=== PATIENT | female | born 1960 | race American Indian/Alaskan Native ===

== ENCOUNTER 2017-04-17 11:27 | Inpatient (IN) | payer MEDICARE ==
--- NOTE | 2017-04-17 13:05 | XRay Report ---
AP CHEST: HISTORY: Shortness of breath No comparison. Heart size and pulmonary venous structures are borderline. A small left pleural effusion is identified. No evidence for pneumonia or pneumothorax. IMPRESSION: Mild CHF.
[2017-04-17 13:12] LABS: Basophils % (Auto) 0.6 % (0.0-1.8); Eosinophils % (Auto) 1.6 % (0.0-4.3); Hematocrit 37.1 % (30.3-42.9); Hemoglobin 12.1 gm/dl (10.1-14.3); Mean Corpuscular HGB Conc 33 % (30-34); Mean Corpuscular Hemoglobin 27 pg (28-32); Mean Corpuscular Volume 82 fl (79-97); Platelet Count 266 K/mm3 (140-440); Red Blood Count 4.54 M/mm3 (3.65-5.03); Red Cell Distribution Width 15.7 % (13.2-15.2); White Blood Count 9.9 K/mm3 (4.5-11.0)
[2017-04-17 13:18] LABS: Anion Gap 18 mmol/L; BUN/Creatinine Ratio 29; Blood Urea Nitrogen 23 mg/dL (7-17); Calcium 8.7 mg/dL (8.4-10.2); Carbon Dioxide 24 mmol/L (22-30); Chloride 100.9 mmol/L (98-107); Glucose 84 mg/dL (65-100); Potassium 4.6 mmol/L (3.6-5.0); Sodium 138 mmol/L (137-145)
[2017-04-17 13:21] LABS: INR 1.11 (0.87-1.13); Partial Thromboplastin Time 27.5 Sec. (24.2-36.6)
[2017-04-17 13:39] LABS: Cholesterol 175 mg/dL (50-199); HDL Cholesterol 33 mg/dL (40-59); LDL Cholesterol,Direct 113 mg/dL (50-130); Triglycerides 148 mg/dL (2-149)
[2017-04-17] MEDS ORDERED: LASIX IV ONE (13:53)
--- NOTE | 2017-04-17 14:07 | Emergency Department Report ---
ED Shortness of Breath HPI - General Chief Complaint: Dyspnea/Respdistress Stated Complaint: KELVIN Time Seen by Provider: 04/17/17 13:39 Source: patient, EMS Mode of arrival: Stretcher Limitations: Physical Limitation - History of Present Illness Initial Comments: 56-year-old female here with complaint of shortness of breath. Patient states her last 3 days she's had worsening shortness of breath however yesterday the ear was out in her apartment she felt worse. She denies fevers or chills. No cough. She has a known history of CHF MD Complaint: shortness of breath -: days(s) (3) Consistency: constant Improves With: oxygen Worsens With: lying flat Known History Of: congestive heart failure Treatments Prior to Arrival: oxygen - Related Data Allergies Allergy/AdvReac Type Severity Reaction Status Date / Time No Known Allergies Allergy Unverified 04/17/17 11:46 ED Review of Systems ROS: Stated complaint: KELVIN Other details as noted in HPI Comment: All other systems reviewed and negative ENT: epistaxis Respiratory: orthopnea, SOB with exertion, SOB at rest. denies: cough, shortness of breath, wheezing Cardiovascular: denies: chest pain, palpitations Endocrine: no symptoms reported Gastrointestinal: denies: abdominal pain, nausea, diarrhea Genitourinary: denies: urgency, dysuria, discharge Musculoskeletal: denies: back pain, joint swelling, arthralgia Skin: denies: rash, lesions Neurological: denies: headache, weakness, paresthesias Psychiatric: denies: anxiety, depression Hematological/Lymphatic: denies: easy bleeding, easy bruising ED Past Medical Hx - Past Medical History Previous Medical History?: Yes Hx Hypertension: Yes Hx CVA: Yes (2008) Additional medical history: 2008 - Surgical History Past Surgical History?: Yes Additional Surgical History: 2012 dislocation of left ankle but was never repair ; October 2016 left hip replacement - Social History Smoking Status: Former Smoker Substance Use Type: Alcohol ED Physical Exam - General Limitations: Physical Limitation General appearance: alert, in no apparent distress - Head Head exam: Present: atraumatic, normocephalic - Eye Eye exam: Present: normal appearance. Absent: scleral icterus, conjunctival injection - ENT ENT exam: Present: mucous membranes moist - Neck Neck exam: Present: normal inspection - Respiratory Respiratory exam: Present: rales, decreased breath sounds (decreased at left base). Absent: respiratory distress - Cardiovascular Cardiovascular Exam: Present: regular rate, normal rhythm, normal heart sounds. Absent: systolic murmur, diastolic murmur, rubs, gallop - GI/Abdominal GI/Abdominal exam: Present: soft, normal bowel sounds. Absent: distended, tenderness - Extremities Exam Extremities exam: Present: normal inspection - Back Exam Back exam: Present: normal inspection - Neurological Exam Neurological exam: Present: alert, oriented X3 - Psychiatric Psychiatric exam: Present: normal affect, normal mood - Skin Skin exam: Present: warm, dry, intact, normal color. Absent: rash ED Course Vital Signs 04/17/17 04/17/17 11:46 13:00 Temperature 98.4 F Pulse Rate 96 H 103 H Respiratory 25 H Rate Blood Pressure 104/74 O2 Sat by Pulse 100 Oximetry ED Medical Decision Making - Lab Data Result diagrams: 04/17/17 12:40 04/17/17 12:40 Laboratory Results - last 24 hr 04/17/17 04/17/17 04/17/17 12:40 12:40 12:40 WBC 9.9 RBC 4.54 Hgb 12.1 Hct 37.1 MCV 82 MCH 27 L MCHC 33 RDW 15.7 H Plt Count 266 Lymph % (Auto) 12.7 L [place] % (Auto) 1.8 Eos % (Auto) 1.6 Baso % (Auto) 0.6 Lymph # 1.3 [place] # 0.2 Eos # 0.2 Baso # 0.1 Seg Neutrophils % 83.3 H Seg Neutrophils # 8.2 H PT 14.9 INR 1.11 Sodium 138 Potassium 4.6 Chloride 100.9 Carbon Dioxide 24 Anion Gap 18 BUN 23 H Creatinine 0.8 Estimated GFR > 60 BUN/Creatinine Ratio 29 Glucose 84 Calcium 8.7 Troponin T 0.174 H* Triglycerides 148 Cholesterol 175 LDL Cholesterol Direct 113 HDL Cholesterol 33 L Cholesterol/HDL Ratio 5.30 - Medical Decision Making 56-year-old female here with complaint of shortness of breath. Patient with mild CHF. Crackles on clinical exam. She has a chest x-ray that shows left pleural effusion with bilateral pulmonary edema. Denies fevers chills nausea vomiting. Plan admit the patient to the hospitalist for diuresis. Ordered doses of Lasix and will admit. Portions of this chart were dictated with dictation software. There may be dictation errors contained within this note. Critical care attestation.: If time is entered above; I have spent that time in minutes in the direct care of this critically ill patient, excluding procedure time. ED Disposition Clinical Impression: Acute exacerbation of CHF (congestive heart failure) Disposition: OP ADMIT IP TO THIS HOSP Is pt being admited?: Yes Condition: Serious Referrals: PRIMARY CARE, [Primary Care Provider] - 3-5 Days
--- NOTE | 2017-04-17 14:12 | History and Physical Report ---
History of Present Illness Chief complaint: I cant breathe History of present illness: 56 YO Female with HTN, CVA, Systolic CHF, Obesity presents to ED for evaluation. Pt states that she has experienced shortness of breath for the past 3 days with worsening symptoms over the past 12 hours. Pt acknowledges leg swelling, Orthopnea, PND, dietary noncompliance, feeling bloated. Pt denies fever, chills, CP, Palpitations, NVD, syncope, productive cough, calf pain, prolonged travel/immobility, individual/family history of DVT/PE, skin rash, vertigo, trauma, hemopysis, or recent ill contacts. Past History Past Medical History: heart failure, hypertension, stroke Past Surgical History: total hip replacement Social history: single. denies: smoking, alcohol abuse, prescription drug abuse Family history: hypertension Medications and Allergies Allergies Allergy/AdvReac Type Severity Reaction Status Date / Time No Known Allergies Allergy Unverified 04/17/17 11:46 Home Medications Medication Instructions Recorded Confirmed Last Taken Type Carvedilol [Coreg] 12.5 mg PO BIDWM 04/17/17 04/17/17 Unknown History Cyclobenzaprine [Flexeril 10 MG 10 mg PO DAILY 04/17/17 04/17/17 Unknown History TAB] Gabapentin [Neurontin] 300 mg PO TID 04/17/17 04/17/17 Unknown History Ibuprofen [Motrin 800 MG tab] 800 mg PO DAILY 04/17/17 04/17/17 Unknown History amLODIPine [Norvasc] 10 mg PO DAILY 04/17/17 04/17/17 Unknown History prednisoLONE [Millipred] 5 mg PO DAILY 04/17/17 04/17/17 Unknown History Review of Systems Constitutional: no weight loss, no weight gain, no fever, no chills, no sweats Ears, nose, mouth and throat: no ear pain, no ear discharge, no tinnitis, no decreased hearing, no nose pain, no nasal congestion Cardiovascular: orthopnea, edema, shortness of breath, paroxysmal nocturnal dyspnea, no chest pain, no palpitations, no rapid/irregular heart beat Respiratory: no cough, no cough with sputum, no excessive sputum, no hemoptysis Gastrointestinal: no abdominal pain, no nausea, no vomiting, no diarrhea, no constipation Genitourinary Female: no pelvic pain, no flank pain, no menorrhagia, no dysuria Rectal: no pain, no incontinence, no bleeding Musculoskeletal: no neck stiffness, no neck pain, no shooting arm pain, no arm numbness/tingling, no low back pain Integumentary: no rash, no pruritis, no redness, no sores Neurological: no transient paralysis, no paralysis, no weakness, no parathesias , no numbness, no tingling Psychiatric: no memory loss, no change in sleep habits, no sleep disturbances, no insomnia, no hypersomnia Endocrine: no cold intolerance, no heat intolerance, no polyphagia, no excessive thirst, no polydipsia, no polyuria, no nocturia, no excessive sweating Hematologic/Lymphatic: no easy bruising, no easy bleeding Allergic/Immunologic: no urticaria, no allergic rhinitis, no wheezing Exam - Constitutional Vitals: Temp Pulse Resp BP Pulse Ox 98.4 F 103 H 25 H 104/74 100 04/17/17 11:46 04/17/17 13:00 04/17/17 11:46 04/17/17 11:46 04/17/17 11:46 General appearance: Present: mild distress, obese, disheveled - EENT Eyes: Present: PERRL ENT: hearing intact, clear oral mucosa - Neck Neck: Present: supple, normal ROM - Respiratory Respiratory effort: labored Respiratory: bilateral: diminished, rhonchi - Cardiovascular Heart Sounds: Present: S1 & S2. Absent: rub, click - Extremities Extremities: pulses symmetrical, No edema Extremity abnormal: edema Peripheral Pulses: within normal limits - Abdominal General gastrointestinal: Present: soft, non-tender, non-distended, normal bowel sounds Female genitourinary: Present: normal - Integumentary Integumentary: Present: clear, dry - Musculoskeletal Musculoskeletal: gait normal, strength equal bilaterally - Psychiatric Psychiatric: appropriate mood/affect, intact judgment & insight - Neurologic Neurologic: CNII-XII intact, moves all extremities Results - Labs CBC & Chem 7: 04/17/17 12:40 04/17/17 12:40 Labs: Abnormal lab results 04/17/17 04/17/17 Range/Units 12:40 12:40 MCH 27 L (28-32) pg RDW 15.7 H (13.2-15.2) % Lymph % (Auto) 12.7 L (13.4-35.0) % Seg Neutrophils % 83.3 H (40.0-70.0) % Seg Neutrophils # 8.2 H (1.8-7.7) K/mm3 BUN 23 H (7-17) mg/dL Troponin T 0.174 H* (0.00-0.029) ng/mL HDL Cholesterol 33 L (40-59) mg/dL Assessment and Plan - Patient Problems (1) Acute exacerbation of CHF (congestive heart failure) Current Visit: Yes Status: Acute Qualifiers: Congestive heart failure type: C Plan to address problem: Admit to telemetry, afterload reduction, fluid restriction, daily weight, monitor uop q shift, diuretic therapy, negative fluid balance, low sodium diet, cardiology consulted, 2 D echo, ddimer, (2) Acute hypoxemic respiratory failure Current Visit: Yes Status: Acute Plan to address problem: supplemental oxygen, nebs, aspiration precautions, NIPPV as clinically indicated (3) Obesity Current Visit: Yes Status: Acute Qualifiers: Obesity type: O Obesity classification: O Serious obesity comorbidity presence: S Body mass index: B Plan to address problem: balanced diet, increased physical activity (4) HTN (hypertension) Current Visit: Yes Status: Acute Qualifiers: Hypertension type: H Plan to address problem: Monitor BP q shift, supportive care. (5) Lung nodule Current Visit: Yes Status: Acute Plan to address problem: Repeat Chest CT in 3-6 months, (6) DVT prophylaxis Current Visit: Yes Status: Acute
[2017-04-17] MEDS ORDERED: ZOFRAN IV PRN (14:13)
[2017-04-17] MEDS ORDERED: PROVENTIL IH PRN (14:13)
[2017-04-17] MEDS: TYLENOL PO PRN (18:00)
[2017-04-17] MEDS: LASIX IV SCH (18:00)
--- NOTE | 2017-04-17 18:25 | Cat Scan Report ---
FINAL REPORT PROCEDURE: CT ANGIO CHEST TECHNIQUE: Computerized tomographic angiography of the chest was performed after the IV injection of iodinated nonionic contrast including image processing. The image data was postprocessed using 2-dimensional multiplanar reformatted (MPR) and 3-dimensional (MIP and/or volume rendered) techniques. HISTORY: sob, elevated d-dimer COMPARISON: No prior studies are available for comparison. FINDINGS: There is cardiomegaly and pulmonary venous congestion. Mild diffuse ground-glass densities are suspected in the lungs that could be from pulmonary edema. Less likely these ground-glass densities are from atypical infection or drug reaction. Findings are superimposed upon moderate changes of COPD. There may be mild pulmonary fibrosis. Likely mild hypoventilatory changes are seen in the lung bases, being greatest at the left CP angle. There is a nodular density in the left suprahilar region on image 35 of series 4. It measures 6.5 millimeters in greatest dimension. There may be a small left hilar lymph node measuring 9 millimeters in greatest dimension. A few small mediastinal lymph nodes are seen in the prevascular space there is a 2nd nodule or lymph node seen in the superior aspect of the left hilum. It measures 9.6 x 6.5 millimeters. Thoracic aorta is normal in size without evidence of dissection. No pulmonary embolus is seen. Minimal anterior loss of height of T7 may be new or old. IMPRESSION: No pulmonary embolus is seen. Likely CHF and pulmonary edema are seen. Less likely lung densities are from atypical infection or drug reaction. Changes of COPD are seen and possible mild fibrotic changes are seen. Three small nodular densities are seen associated with the left hilar region. These are likely a combination of lung nodules and lymph nodes. Followup chest CT in 2-3 months time is recommended to assure stability or resolution.
[2017-04-18] MEDS: LASIX IV SCH ×2 (05:46→18:28)
[2017-04-18] MEDS: COREG PO SCH ×3 (05:46→22:55)
[2017-04-18] MEDS ORDERED: NORVASC PO SCH (10:00)
[2017-04-18] MEDS ORDERED: PREDNISOLONE 5 MG PO SCH (10:00)
[2017-04-18 11:26] LABS: BUN/Creatinine Ratio 29; Blood Urea Nitrogen 23 mg/dL (7-17); Calcium 8.6 mg/dL (8.4-10.2); Carbon Dioxide 29 mmol/L (22-30); Creatine Kinase 32 units/L (30-135); Glucose 91 mg/dL (65-100)
[2017-04-18 11:27] LABS: Anion Gap 17 mmol/L; Chloride 102.8 mmol/L (98-107); Potassium 4.2 mmol/L (3.6-5.0); Sodium 145 mmol/L (137-145)
--- NOTE | 2017-04-18 11:58 | Consultation ---
History of Present Illness Consult date: 04/18/17 Consult reason: congestive heart failure History of present illness: This is a 56yr old woman that is bedridden from prior CVA. Patient also gives a history of Hypertension and CHF. Patient states she as initially diagnosed with a nonischemic cardiomyopathy by cardiac cath in 2009 at [facility]. Patient has not seen a guide dog mobility instructor in several years. She presented to this hospital with complaints of shortness of breath. There was no chest pain or dizziness. She denies palpitations, vomiting, fever and chills. Patient reports chronic unilateral lower extremity edema. Cardiology consultation was requested for evaluation of CHF. Past History Past Medical History: heart failure, hypertension, stroke Past Surgical History: total hip replacement Social history: single. denies: smoking, alcohol abuse, prescription drug abuse Family history: hypertension Medications and Allergies Allergies Allergy/AdvReac Type Severity Reaction Status Date / Time No Known Allergies Allergy Unverified 04/17/17 11:46 Home Medications Medication Instructions Recorded Confirmed Last Taken Type Carvedilol [Coreg] 12.5 mg PO BIDWM 04/17/17 04/17/17 Unknown History Cyclobenzaprine [Flexeril 10 MG 10 mg PO DAILY 04/17/17 04/17/17 Unknown History TAB] Gabapentin [Neurontin] 300 mg PO TID 04/17/17 04/17/17 Unknown History Ibuprofen [Motrin 800 MG tab] 800 mg PO DAILY 04/17/17 04/17/17 Unknown History amLODIPine [Norvasc] 10 mg PO DAILY 04/17/17 04/17/17 Unknown History prednisoLONE [Millipred] 5 mg PO DAILY 04/17/17 04/17/17 Unknown History Active Meds: Active Medications Acetaminophen (Tylenol) 650 mg PO Q4H PRN PRN Reason: Pain MILD(1-3)/Fever >100.5/BROWN Last Admin: 04/17/17 18:00 Dose: 650 mg Albuterol (Proventil) 2.5 mg IH Q4HRT PRN PRN Reason: Shortness Of Breath Last Admin: 04/17/17 14:55 Dose: 2.5 mg Carvedilol (Coreg) 12.5 mg PO BID CHANELL Last Admin: 04/18/17 05:46 Dose: Not Given Cyclobenzaprine HCl (Flexeril) 10 mg PO DAILY [facility] Furosemide (Lasix) 20 mg IV BID@0600,1800 [facility] Last Admin: 04/18/17 05:46 Dose: 20 mg Gabapentin (Neurontin) 300 mg PO TID [facility] Influenza Virus Vaccine Quadrival (Fluarix Quad [id number](36 Mos+)) 0.5 ml IM .ONCE ONE Stop: 04/18/17 12:01 Miscellaneous Medication (Prednisolone [Millipred]) 5 mg PO DAILY [facility] Ondansetron HCl (Zofran) 4 mg IV Q8H PRN PRN Reason: N/V unrelieved by Nestor Last Admin: 04/17/17 15:24 Dose: 4 mg Pneumococcal Polyvalent Vaccine (Pneumovax 23) 0.5 ml IM .ONCE ONE Stop: 04/18/17 12:01 Physical Examination Vital Signs Temp Pulse Resp BP Pulse Ox 98.4 F 96 H 25 H 104/74 100 04/17/17 11:46 04/17/17 11:46 04/17/17 11:46 04/17/17 11:46 04/17/17 11:46 General appearance: no acute distress HEENT: Positive: PERRL Cardiac: Positive: Reg Rate and Rhythm Lungs: Positive: Decreased Breath Sounds Results 04/17/17 12:40 04/18/17 10:50 Cardiac Enzymes 04/18/17 Range/Units 10:50 CK-MB (CK-2) 2.0 (0.0-4.0) ng/mL Comprehensive Metabolic Panel 04/18/17 Range/Units 10:50 Sodium 145 D (137-145) mmol/L Potassium 4.2 (3.6-5.0) mmol/L Chloride 102.8 (98-107) mmol/L Carbon Dioxide 29 (22-30) mmol/L BUN 23 H (7-17) mg/dL Creatinine 0.8 (0.7-1.2) mg/dL Glucose 91 (65-100) mg/dL Calcium 8.6 (8.4-10.2) mg/dL Assessment and Plan Shortness of breath no evidence of PE on CTA Old CVA Hypertension
[2017-04-18] MEDS ORDERED: Fluarix Quad 2017-2018(36 MOS+ IM ONE (12:00)
[2017-04-18] MEDS ORDERED: PNEUMOVAX 23 IM ONE (12:00)
[2017-04-18] MEDS: NEURONTIN PO SCH ×3 (12:31→20:21)
[2017-04-18] MEDS: FLEXERIL PO SCH (12:31)
[2017-04-18] MEDS ORDERED: LOVENOX SUB-Q SCH (22:00)
--- NOTE | 2017-04-18 22:13 | Progress Note ---
Assessment and Plan Assessment and plan: Acute and chronic diastolic CHF exacerbation - Patient is on IV Lasix, continue carvedilol - Cardiology consulted - Echo showed right atrial mass, decreased diastolic function - Per cardiology patient is on therapeutic Lovenox given a right atrial mass and asymmetric lower extremity edema at presentation, CTA negative, bilateral lower extremity doppler negative for DVT - Scheduled to have KERMIT on Friday - There is mild elevation in troponin level Acute hypoxemic respiratory failure -Oxygen support - Improved History of CVA with residual weakness/immobile - Supportive care - Physical therapy consult DVT prophylaxis - On therapeutic Lovenox Disposition - Continue inpatient care History Interval history: Patient was seen and evaluated this morning, patient's shortness of breath is getting better, leg swelling is getting better. Hospitalist Physical - Physical exam Narrative exam: Not in cardiopulmonary distress. The patient appeared well nourished and normally developed. Vital signs as documented. Head exam is unremarkable. No scleral icterus . Neck is without jugular venous distension, thyromegaly, or carotid bruits. Lungs decreased air entry on bibasilar area. Cardiac exam reveals regular rate and Rhythm. Abdominal exam reveals normal bowel sounds. Extremities edema subsided. STRUCTURAL SHOP HELPER: Alert and oriented 3. - Constitutional Vitals: Temp Pulse Resp BP Pulse Ox 98.1 F 89 18 97/60 97 04/18/17 19:40 04/18/17 19:40 04/18/17 19:40 04/18/17 19:40 04/18/17 21:01 General appearance: Present: no acute distress Results - Labs CBC & Chem 7: 04/17/17 12:40 04/19/17 04:42 Labs: Laboratory Last Values WBC 9.9 K/mm3 (4.5-11.0) 04/17/17 12:40 RBC 4.54 M/mm3 (3.65-5.03) 04/17/17 12:40 Hgb 12.1 gm/dl (10.1-14.3) 04/17/17 12:40 Hct 37.1 % (30.3-42.9) 04/17/17 12:40 MCV 82 fl (79-97) 04/17/17 12:40 MCH 27 pg (28-32) L 04/17/17 12:40 MCHC 33 % (30-34) 04/17/17 12:40 RDW 15.7 % (13.2-15.2) H 04/17/17 12:40 Plt Count 266 K/mm3 (140-440) 04/17/17 12:40 Lymph % (Auto) 12.7 % (13.4-35.0) L 04/17/17 12:40 [place] % (Auto) 1.8 % (0.0-7.3) 04/17/17 12:40 Eos % (Auto) 1.6 % (0.0-4.3) 04/17/17 12:40 Baso % (Auto) 0.6 % (0.0-1.8) 04/17/17 12:40 Lymph # 1.3 K/mm3 (1.2-5.4) 04/17/17 12:40 Dixon # 0.2 K/mm3 (0.0-0.8) 04/17/17 12:40 Eos # 0.2 K/mm3 (0.0-0.4) 04/17/17 12:40 Baso # 0.1 K/mm3 (0.0-0.1) 04/17/17 12:40 Seg Neutrophils % 83.3 % (40.0-70.0) H 04/17/17 12:40 Seg Neutrophils # 8.2 K/mm3 (1.8-7.7) H 04/17/17 12:40 PT 14.9 Sec. (12.2-14.9) 04/17/17 12:40 INR 1.11 (0.87-1.13) 04/17/17 12:40 D-Dimer 1558.34 ng/mlDDU (0-234) H 04/17/17 12:40 Sodium 145 mmol/L (137-145) D 04/18/17 10:50 Potassium 4.2 mmol/L (3.6-5.0) 04/18/17 10:50 Chloride 102.8 mmol/L (98-107) 04/18/17 10:50 Carbon Dioxide 29 mmol/L (22-30) 04/18/17 10:50 Anion Gap 17 mmol/L 04/18/17 10:50 BUN 23 mg/dL (7-17) H 04/18/17 10:50 Creatinine 0.8 mg/dL (0.7-1.2) 04/18/17 10:50 Estimated GFR > 60 ml/min 04/18/17 10:50 BUN/Creatinine Ratio 29 % 04/18/17 10:50 Glucose 91 mg/dL (65-100) 04/18/17 10:50 Calcium 8.6 mg/dL (8.4-10.2) 04/18/17 10:50 Magnesium 2.20 mg/dL (1.7-2.3) 04/18/17 10:50 Total Creatine Kinase 32 units/L (30-135) 04/18/17 10:50 CK-MB (CK-2) 2.0 ng/mL (0.0-4.0) 04/18/17 10:50 CK-MB (CK-2) Rel Index 6.2 (0-4) H 04/18/17 10:50 Troponin T 0.171 ng/mL (0.00-0.029) H* 04/18/17 10:50 NT-Pro-B Natriuret Pep 3410 pg/mL (0-900) H 04/17/17 12:40 Triglycerides 148 mg/dL (2-149) 04/17/17 12:40 Cholesterol 175 mg/dL (50-199) 04/17/17 12:40 LDL Cholesterol Direct 113 mg/dL (50-130) 04/17/17 12:40 HDL Cholesterol 33 mg/dL (40-59) L 04/17/17 12:40 Cholesterol/HDL Ratio 5.30 % 04/17/17 12:40
[2017-04-18] MEDS: LOVENOX SUB-Q SCH (22:59)
[2017-04-19 05:49] LABS: Albumin 2.2 g/dL (3.9-5); Albumin/Globulin Ratio 0.4 %; Alkaline Phosphatase 92 units/L (35-129); BUN/Creatinine Ratio 24; Blood Urea Nitrogen 22 mg/dL (7-17); Calcium 8.6 mg/dL (8.4-10.2); Carbon Dioxide 28 mmol/L (22-30); Chloride 105.2 mmol/L (98-107); Glucose 92 mg/dL (65-100); Sodium 142 mmol/L (137-145)
[2017-04-19] MEDS: LASIX IV SCH ×2 (05:57→18:27)
[2017-04-19 06:11] LABS: Alanine Aminotransferase 8 units/L (7-56); Anion Gap 13 mmol/L; Potassium 4.5 mmol/L (3.6-5.0)
--- NOTE | 2017-04-19 06:48 | Progress Note ---
Assessment and Plan Assessment and plan: Acute and chronic diastolic CHF exacerbation - Patient is on IV Lasix, continue carvedilol - Cardiology consulted - Echo showed right atrial mass, decreased diastolic function - Per cardiology patient is on therapeutic Lovenox given a right atrial mass and asymmetric lower extremity edema at presentation, CTA negative, bilateral lower extremity doppler negative for DVT - Scheduled to have KERMIT on Friday - There is mild elevation in troponin level Acute hypoxemic respiratory failure -Oxygen support - Improved History of CVA with residual weakness/immobile - Supportive care - Physical therapy consult DVT prophylaxis - On therapeutic Lovenox Disposition - Continue inpatient care History Interval history: Patient was seen and evaluated this morning, patient's shortness of breath is getting better, leg swelling is getting better. Hospitalist Physical - Physical exam Narrative exam: Not in cardiopulmonary distress. The patient appeared well nourished and normally developed. Vital signs as documented. Head exam is unremarkable. No scleral icterus . Neck is without jugular venous distension, thyromegaly, or carotid bruits. Lungs decreased air entry on bibasilar area. Cardiac exam reveals regular rate and Rhythm. Abdominal exam reveals normal bowel sounds. Extremities edema subsided. 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 - Constitutional Vitals: Temp Pulse Resp BP Pulse Ox 98.5 F 89 18 106/65 99 04/19/17 05:15 04/19/17 05:15 04/19/17 05:15 04/19/17 05:15 04/19/17 05:15 General appearance: Present: no acute distress Results - Labs CBC & Chem 7: 04/17/17 12:40 04/19/17 04:42 Labs: Laboratory Last Values WBC 9.9 K/mm3 (4.5-11.0) 04/17/17 12:40 RBC 4.54 M/mm3 (3.65-5.03) 04/17/17 12:40 Hgb 12.1 gm/dl (10.1-14.3) 04/17/17 12:40 Hct 37.1 % (30.3-42.9) 04/17/17 12:40 MCV 82 fl (79-97) 04/17/17 12:40 MCH 27 pg (28-32) L 04/17/17 12:40 MCHC 33 % (30-34) 04/17/17 12:40 RDW 15.7 % (13.2-15.2) H 04/17/17 12:40 Plt Count 266 K/mm3 (140-440) 04/17/17 12:40 Lymph % (Auto) 12.7 % (13.4-35.0) L 04/17/17 12:40 [place] % (Auto) 1.8 % (0.0-7.3) 04/17/17 12:40 Eos % (Auto) 1.6 % (0.0-4.3) 04/17/17 12:40 Baso % (Auto) 0.6 % (0.0-1.8) 04/17/17 12:40 Lymph # 1.3 K/mm3 (1.2-5.4) 04/17/17 12:40 [place] # 0.2 K/mm3 (0.0-0.8) 04/17/17 12:40 Eos # 0.2 K/mm3 (0.0-0.4) 04/17/17 12:40 Baso # 0.1 K/mm3 (0.0-0.1) 04/17/17 12:40 Seg Neutrophils % 83.3 % (40.0-70.0) H 04/17/17 12:40 Seg Neutrophils # 8.2 K/mm3 (1.8-7.7) H 04/17/17 12:40 PT 14.9 Sec. (12.2-14.9) 04/17/17 12:40 INR 1.11 (0.87-1.13) 04/17/17 12:40 D-Dimer 1558.34 ng/mlDDU (0-234) H 04/17/17 12:40 Sodium 142 mmol/L (137-145) 04/19/17 04:42 Potassium 4.5 mmol/L (3.6-5.0) 04/19/17 04:42 Chloride 105.2 mmol/L (98-107) 04/19/17 04:42 Carbon Dioxide 28 mmol/L (22-30) 04/19/17 04:42 Anion Gap 13 mmol/L 04/19/17 04:42 BUN 22 mg/dL (7-17) H 04/19/17 04:42 Creatinine 0.9 mg/dL (0.7-1.2) 04/19/17 04:42 Estimated GFR > 60 ml/min 04/19/17 04:42 BUN/Creatinine Ratio 24 % 04/19/17 04:42 Glucose 92 mg/dL (65-100) 04/19/17 04:42 Calcium 8.6 mg/dL (8.4-10.2) 04/19/17 04:42 Magnesium 2.30 mg/dL (1.7-2.3) 04/19/17 04:42 Total Bilirubin 0.30 mg/dL (0.1-1.2) 04/19/17 04:42 AST 14 units/L (5-40) 04/19/17 04:42 ALT 8 units/L (7-56) 04/19/17 04:42 Alkaline Phosphatase 92 units/L (35-129) 04/19/17 04:42 Total Creatine Kinase 32 units/L (30-135) 04/18/17 10:50 CK-MB (CK-2) 2.0 ng/mL (0.0-4.0) 04/18/17 10:50 CK-MB (CK-2) Rel Index 6.2 (0-4) H 04/18/17 10:50 Troponin T 0.171 ng/mL (0.00-0.029) H* 04/18/17 10:50 NT-Pro-B Natriuret Pep 3410 pg/mL (0-900) H 04/17/17 12:40 Total Protein 8.0 g/dL (6.3-8.2) 04/19/17 04:42 Albumin 2.2 g/dL (3.9-5) L 04/19/17 04:42 Albumin/Globulin Ratio 0.4 % 04/19/17 04:42 Triglycerides 148 mg/dL (2-149) 04/17/17 12:40 Cholesterol 175 mg/dL (50-199) 04/17/17 12:40 LDL Cholesterol Direct 113 mg/dL (50-130) 04/17/17 12:40 HDL Cholesterol 33 mg/dL (40-59) L 04/17/17 12:40 Cholesterol/HDL Ratio 5.30 % 04/17/17 12:40
--- NOTE | 2017-04-19 10:33 | Progress Note ---
Assessment and Plan No events overnight Patient is paraplegic secondary to remote CVA. She denies chest pain but reports shortness of breath that appears chronic Troponin is borderline elevated CTA chest suggestive of COPD and pulmonary edema but no PE Echo is showing normal LVEF, possible RA mass D-Dimer elevated Recommendations: Given history of paraplegia, assymetric LE edema and possible RA mass on echocardiogram, continue empiric anticoagulation with SC lovenox Obtain a venous LE doppler US Obtain KERMIT on friday Subjective Date of service: 04/19/17 Interval history: No events overnight Objective Vital Signs Temp Pulse Resp BP BP Pulse Ox 04/19/17 09:18 100 04/19/17 07:27 86 102/75 100 04/19/17 07:26 98.5 F 87 20 102/75 99 04/19/17 05:15 98.5 F 89 18 106/65 99 04/19/17 04:32 84 04/18/17 23:43 98.2 F 88 18 97/66 99 04/18/17 22:55 93 H 97/60 04/18/17 22:53 95 H 04/18/17 22:51 20 97/60 04/18/17 21:01 97 04/18/17 19:40 98.1 F 89 18 97/60 99 04/18/17 16:00 83 04/18/17 15:33 98.5 F 83 15 132/110 98 04/18/17 11:10 98.2 F 78 20 92/60 96 - Physical Examination Narrative exam: Physical examination Vitals reviewed GEN: No acute distress noted HEENT: Carotids 2+ NECK: Supple CVS: S1 and S2 heard no significant murmur or gallop noted LUNGS/CHEST: Normal auscultation ABD: Soft nontender Extremities: Asymmetric edema NEURO: Paraplegia PSY: Stable HEENT: Positive: PERRL - Labs and Meds Cardiac Enzymes 04/18/17 04/19/17 Range/Units 10:50 04:42 AST 14 (5-40) units/L CK-MB (CK-2) 2.0 (0.0-4.0) ng/mL Comprehensive Metabolic Panel 04/18/17 04/19/17 Range/Units 10:50 04:42 Sodium 145 D 142 (137-145) mmol/L Potassium 4.2 4.5 (3.6-5.0) mmol/L Chloride 102.8 105.2 (98-107) mmol/L Carbon Dioxide 29 28 (22-30) mmol/L BUN 23 H 22 H (7-17) mg/dL Creatinine 0.8 0.9 (0.7-1.2) mg/dL Glucose 91 92 (65-100) mg/dL Calcium 8.6 8.6 (8.4-10.2) mg/dL AST 14 (5-40) units/L ALT 8 (7-56) units/L Alkaline Phosphatase 92 (35-129) units/L Total Protein 8.0 (6.3-8.2) g/dL Albumin 2.2 L (3.9-5) g/dL
[2017-04-19] MEDS: NEURONTIN PO SCH ×3 (11:20→21:18)
[2017-04-19] MEDS: FLEXERIL PO SCH (11:20)
[2017-04-19] MEDS: COREG PO SCH ×2 (11:20→21:18)
[2017-04-19] MEDS: LOVENOX SUB-Q SCH ×2 (11:21→21:18)
[2017-04-20 05:25] LABS: Basophils % (Auto) 0.4 % (0.0-1.8); Hematocrit 33.5 % (30.3-42.9); Hemoglobin 10.3 gm/dl (10.1-14.3); Mean Corpuscular HGB Conc 31 % (30-34); Mean Corpuscular Volume 83 fl (79-97); Platelet Count 254 K/mm3 (140-440); Red Blood Count 4.02 M/mm3 (3.65-5.03); Red Cell Distribution Width 15.9 % (13.2-15.2); White Blood Count 8.8 K/mm3 (4.5-11.0)
[2017-04-20 05:28] LABS: Mean Corpuscular Hemoglobin 26 pg (28-32)
[2017-04-20 06:04] LABS: Anion Gap 10 mmol/L; BUN/Creatinine Ratio 32; Blood Urea Nitrogen 19 mg/dL (7-17); Calcium 8.5 mg/dL (8.4-10.2); Carbon Dioxide 31 mmol/L (22-30); Chloride 102.3 mmol/L (98-107); Glucose 84 mg/dL (65-100); Potassium 4.2 mmol/L (3.6-5.0); Sodium 139 mmol/L (137-145)
[2017-04-20] MEDS: LASIX IV SCH ×2 (06:38→17:29)
[2017-04-20] MEDS: FLEXERIL PO SCH (09:37)
[2017-04-20] MEDS: COREG PO SCH ×2 (09:37→21:30)
[2017-04-20] MEDS: LOVENOX SUB-Q SCH ×2 (09:38→21:30)
[2017-04-20] MEDS: NEURONTIN PO SCH ×3 (09:38→21:30)
--- NOTE | 2017-04-20 10:23 | Progress Note ---
Assessment and Plan No events overnight Patient is paraplegic secondary to remote CVA. She denies chest pain but reports shortness of breath that appears chronic Troponin is borderline elevated CTA chest suggestive of COPD and pulmonary edema but no PE Echo is showing normal LVEF, possible RA mass D-Dimer elevated Recommendations: Given history of paraplegia, asymmetric LE edema and possible RA mass on echocardiogram, continue empiric anticoagulation with SC lovenox Obtain a venous LE doppler US Obtain KERMIT tomorrow Subjective Date of service: 04/20/17 Interval history: No events overnight Objective Vital Signs Temp Pulse Resp BP BP Pulse Ox 04/20/17 10:14 96 04/20/17 08:08 96.8 F L 88 17 110/71 97 04/20/17 03:58 99.3 F 87 16 104/61 100 04/20/17 00:16 81 04/20/17 00:06 97.4 F L 81 16 95/60 94 04/19/17 21:18 68 97/61 04/19/17 21:15 100 04/19/17 19:39 100.0 F H 96 H 16 97/61 98 04/19/17 16:31 94 H 96 04/19/17 16:30 98.0 F 95 H 18 94/47 99 04/19/17 12:45 98.2 F 91 H 18 115/66 99 04/19/17 12:44 97 H 99 04/19/17 12:43 98.2 F 91 H 18 115/66 97 - Physical Examination Narrative exam: Physical examination Vitals reviewed GEN: No acute distress noted HEENT: Carotids 2+ NECK: Supple CVS: S1 and S2 heard no significant murmur or gallop noted LUNGS/CHEST: Normal auscultation ABD: Soft nontender Extremities: Asymmetric edema NEURO: Paraplegia PSY: Stable HEENT: Positive: PERRL - Labs and Meds CBC 04/20/17 Range/Units 04:51 WBC 8.8 (4.5-11.0) K/mm3 RBC 4.02 (3.65-5.03) M/mm3 Hgb 10.3 (10.1-14.3) gm/dl Hct 33.5 (30.3-42.9) % Plt Count 254 (140-440) K/mm3 Lymph # 3.0 (1.2-5.4) K/mm3 [place] # 0.5 (0.0-0.8) K/mm3 Eos # 0.3 (0.0-0.4) K/mm3 Baso # 0.0 (0.0-0.1) K/mm3 Comprehensive Metabolic Panel 04/20/17 Range/Units 04:51 Sodium 139 (137-145) mmol/L Potassium 4.2 (3.6-5.0) mmol/L Chloride 102.3 (98-107) mmol/L Carbon Dioxide 31 H (22-30) mmol/L BUN 19 H (7-17) mg/dL Creatinine 0.6 L (0.7-1.2) mg/dL Glucose 84 (65-100) mg/dL Calcium 8.5 (8.4-10.2) mg/dL
[2017-04-20] MEDS: TYLENOL PO PRN ×2 (11:42→16:28)
--- NOTE | 2017-04-20 13:37 | Progress Note ---
Assessment and Plan Assessment and plan: Acute and chronic diastolic CHF exacerbation - Patient is on IV Lasix, continue carvedilol - Cardiology consulted - Echo showed right atrial mass, decreased diastolic function - Per cardiology patient is on therapeutic Lovenox given a right atrial mass and asymmetric lower extremity edema at presentation, CTA negative, bilateral lower extremity doppler negative for DVT - Scheduled to have KERMIT on Friday - There is mild elevation in troponin level Acute hypoxemic respiratory failure -Oxygen support - Improved History of CVA with residual weakness/immobile - Supportive care - Physical therapy consult DVT prophylaxis - On therapeutic Lovenox Disposition - Continue inpatient care History Interval history: Patient was seen and evaluated this morning, patient's shortness of breath is getting better, leg swelling is getting better. Hospitalist Physical - Physical exam Narrative exam: Not in cardiopulmonary distress. The patient appeared well nourished and normally developed. Vital signs as documented. Head exam is unremarkable. No scleral icterus . Neck is without jugular venous distension, thyromegaly, or carotid bruits. Lungs decreased air entry on bibasilar area. Cardiac exam reveals regular rate and Rhythm. Abdominal exam reveals normal bowel sounds. Extremities edema subsided. 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 - Constitutional Vitals: Temp Pulse Resp BP Pulse Ox 99.0 F 88 18 83/54 100 04/20/17 13:15 04/20/17 13:15 04/20/17 13:15 04/20/17 13:15 04/20/17 13:15 General appearance: Present: no acute distress Results - Labs CBC & Chem 7: 04/20/17 04:51 04/20/17 04:51 Labs: Laboratory Last Values WBC 8.8 K/mm3 (4.5-11.0) 04/20/17 04:51 RBC 4.02 M/mm3 (3.65-5.03) 04/20/17 04:51 Hgb 10.3 gm/dl (10.1-14.3) 04/20/17 04:51 Hct 33.5 % (30.3-42.9) 04/20/17 04:51 MCV 83 fl (79-97) 04/20/17 04:51 MCH 26 pg (28-32) L 04/20/17 04:51 MCHC 31 % (30-34) 04/20/17 04:51 RDW 15.9 % (13.2-15.2) H 04/20/17 04:51 Plt Count 254 K/mm3 (140-440) 04/20/17 04:51 Lymph % (Auto) 34.4 % (13.4-35.0) 04/20/17 04:51 [place] % (Auto) 6.3 % (0.0-7.3) 04/20/17 04:51 Eos % (Auto) 3.0 % (0.0-4.3) 04/20/17 04:51 Baso % (Auto) 0.4 % (0.0-1.8) 04/20/17 04:51 Lymph # 3.0 K/mm3 (1.2-5.4) 04/20/17 04:51 [place] # 0.5 K/mm3 (0.0-0.8) 04/20/17 04:51 Eos # 0.3 K/mm3 (0.0-0.4) 04/20/17 04:51 Baso # 0.0 K/mm3 (0.0-0.1) 04/20/17 04:51 Seg Neutrophils % 55.9 % (40.0-70.0) 04/20/17 04:51 Seg Neutrophils # 4.9 K/mm3 (1.8-7.7) 04/20/17 04:51 PT 14.9 Sec. (12.2-14.9) 04/17/17 12:40 INR 1.11 (0.87-1.13) 04/17/17 12:40 D-Dimer 1558.34 ng/mlDDU (0-234) H 04/17/17 12:40 Sodium 139 mmol/L (137-145) 04/20/17 04:51 Potassium 4.2 mmol/L (3.6-5.0) 04/20/17 04:51 Chloride 102.3 mmol/L (98-107) 04/20/17 04:51 Carbon Dioxide 31 mmol/L (22-30) H 04/20/17 04:51 Anion Gap 10 mmol/L 04/20/17 04:51 BUN 19 mg/dL (7-17) H 04/20/17 04:51 Creatinine 0.6 mg/dL (0.7-1.2) L 04/20/17 04:51 Estimated GFR > 60 ml/min 04/20/17 04:51 BUN/Creatinine Ratio 32 % 04/20/17 04:51 Glucose 84 mg/dL (65-100) 04/20/17 04:51 Calcium 8.5 mg/dL (8.4-10.2) 04/20/17 04:51 Magnesium 2.30 mg/dL (1.7-2.3) 04/19/17 04:42 Total Bilirubin 0.30 mg/dL (0.1-1.2) 04/19/17 04:42 AST 14 units/L (5-40) 04/19/17 04:42 ALT 8 units/L (7-56) 04/19/17 04:42 Alkaline Phosphatase 92 units/L (35-129) 04/19/17 04:42 Total Creatine Kinase 32 units/L (30-135) 04/18/17 10:50 CK-MB (CK-2) 2.0 ng/mL (0.0-4.0) 04/18/17 10:50 CK-MB (CK-2) Rel Index 6.2 (0-4) H 04/18/17 10:50 Troponin T 0.171 ng/mL (0.00-0.029) H* 04/18/17 10:50 NT-Pro-B Natriuret Pep 3410 pg/mL (0-900) H 04/17/17 12:40 Total Protein 8.0 g/dL (6.3-8.2) 04/19/17 04:42 Albumin 2.2 g/dL (3.9-5) L 04/19/17 04:42 Albumin/Globulin Ratio 0.4 % 04/19/17 04:42 Triglycerides 148 mg/dL (2-149) 04/17/17 12:40 Cholesterol 175 mg/dL (50-199) 04/17/17 12:40 LDL Cholesterol Direct 113 mg/dL (50-130) 04/17/17 12:40 HDL Cholesterol 33 mg/dL (40-59) L 04/17/17 12:40 Cholesterol/HDL Ratio 5.30 % 04/17/17 12:40
[2017-04-21] MEDS: LASIX IV SCH ×2 (06:29→18:10)
--- NOTE | 2017-04-21 07:25 | Vascular Lab Report ---
LOWER EXTREMITY VENOUS DUPLEX: REASON FOR EXAM: Edema of the lower extremities. COMMENTS ON THE RIGHT: All veins visualized are freely compressible without evidence of internal echogenicity. Flow is spontaneous and phasic throughout. COMMENTS ON THE LEFT: All veins visualized are freely compressible without evidence of internal echogenicity. Flow is spontaneous and phasic throughout. IMPRESSION: No evidence of acute or chronic deep venous thrombosis in either lower extremity.
[2017-04-21] MEDS: COREG PO SCH ×2 (09:29→21:56)
[2017-04-21] MEDS: FLEXERIL PO SCH (09:29)
[2017-04-21] MEDS: NEURONTIN PO SCH ×3 (09:29→21:56)
[2017-04-21] MEDS: LOVENOX SUB-Q SCH ×2 (09:30→21:56)
[2017-04-21] MEDS ORDERED: VERSED IV ONE ×2 (12:51→13:00)
[2017-04-21] MEDS ORDERED: SUBLIMAZE ONE (12:52)
[2017-04-21] MEDS ORDERED: HURRICAINE ONE 20% TOPICAL SPRAY MM (12:53)
[2017-04-21] MEDS ORDERED: HURRICAINE ONE 20% TOPICAL SPRAY MM NR (12:55)
[2017-04-21] MEDS ORDERED: SUBLIMAZE IV ONE (13:00)
--- NOTE | 2017-04-21 17:12 | Progress Note ---
Assessment and Plan Assessment and plan: Acute and chronic diastolic CHF exacerbation - Patient is on IV Lasix, continue carvedilol - Cardiology consulted - Echo showed right atrial mass, decreased diastolic function - Per cardiology patient is on therapeutic Lovenox given a right atrial mass and asymmetric lower extremity edema at presentation, CTA negative, bilateral lower extremity doppler negative for DVT - KERMIT was done pending result - There is mild elevation in troponin level Acute hypoxemic respiratory failure -Oxygen support - Improved History of CVA with residual weakness/immobile - Supportive care - Physical therapy consult DVT prophylaxis - On therapeutic Lovenox Disposition - Per cardiology History Interval history: Patient was seen and evaluated this morning, patient's shortness of breath is getting better, leg swelling is getting better. Hospitalist Physical - Physical exam Narrative exam: Not in cardiopulmonary distress. The patient appeared well nourished and normally developed. Vital signs as documented. Head exam is unremarkable. No scleral icterus . Neck is without jugular venous distension, thyromegaly, or carotid bruits. Lungs decreased air entry on bibasilar area. Cardiac exam reveals regular rate and Rhythm. Abdominal exam reveals normal bowel sounds. Extremities edema subsided. 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 - Constitutional Vitals: Temp Pulse Resp BP Pulse Ox 97.6 F 85 85 H 117/70 98 04/21/17 13:47 04/21/17 13:47 04/21/17 13:47 04/21/17 13:47 04/21/17 13:47 General appearance: Present: no acute distress Results - Labs CBC & Chem 7: 04/20/17 04:51 04/20/17 04:51 Labs: Laboratory Last Values WBC 8.8 K/mm3 (4.5-11.0) 04/20/17 04:51 RBC 4.02 M/mm3 (3.65-5.03) 04/20/17 04:51 Hgb 10.3 gm/dl (10.1-14.3) 04/20/17 04:51 Hct 33.5 % (30.3-42.9) 04/20/17 04:51 MCV 83 fl (79-97) 04/20/17 04:51 MCH 26 pg (28-32) L 04/20/17 04:51 MCHC 31 % (30-34) 04/20/17 04:51 RDW 15.9 % (13.2-15.2) H 04/20/17 04:51 Plt Count 254 K/mm3 (140-440) 04/20/17 04:51 Lymph % (Auto) 34.4 % (13.4-35.0) 04/20/17 04:51 [place] % (Auto) 6.3 % (0.0-7.3) 04/20/17 04:51 Eos % (Auto) 3.0 % (0.0-4.3) 04/20/17 04:51 Baso % (Auto) 0.4 % (0.0-1.8) 04/20/17 04:51 Lymph # 3.0 K/mm3 (1.2-5.4) 04/20/17 04:51 [place] # 0.5 K/mm3 (0.0-0.8) 04/20/17 04:51 Eos # 0.3 K/mm3 (0.0-0.4) 04/20/17 04:51 Baso # 0.0 K/mm3 (0.0-0.1) 04/20/17 04:51 Seg Neutrophils % 55.9 % (40.0-70.0) 04/20/17 04:51 Seg Neutrophils # 4.9 K/mm3 (1.8-7.7) 04/20/17 04:51 PT 14.9 Sec. (12.2-14.9) 04/17/17 12:40 INR 1.11 (0.87-1.13) 04/17/17 12:40 D-Dimer 1558.34 ng/mlDDU (0-234) H 04/17/17 12:40 Sodium 139 mmol/L (137-145) 04/20/17 04:51 Potassium 4.2 mmol/L (3.6-5.0) 04/20/17 04:51 Chloride 102.3 mmol/L (98-107) 04/20/17 04:51 Carbon Dioxide 31 mmol/L (22-30) H 04/20/17 04:51 Anion Gap 10 mmol/L 04/20/17 04:51 BUN 19 mg/dL (7-17) H 04/20/17 04:51 Creatinine 0.6 mg/dL (0.7-1.2) L 04/20/17 04:51 Estimated GFR > 60 ml/min 04/20/17 04:51 BUN/Creatinine Ratio 32 % 04/20/17 04:51 Glucose 84 mg/dL (65-100) 04/20/17 04:51 Calcium 8.5 mg/dL (8.4-10.2) 04/20/17 04:51 Magnesium 2.30 mg/dL (1.7-2.3) 04/19/17 04:42 Total Bilirubin 0.30 mg/dL (0.1-1.2) 04/19/17 04:42 AST 14 units/L (5-40) 04/19/17 04:42 ALT 8 units/L (7-56) 04/19/17 04:42 Alkaline Phosphatase 92 units/L (35-129) 04/19/17 04:42 Total Creatine Kinase 32 units/L (30-135) 04/18/17 10:50 CK-MB (CK-2) 2.0 ng/mL (0.0-4.0) 04/18/17 10:50 CK-MB (CK-2) Rel Index 6.2 (0-4) H 04/18/17 10:50 Troponin T 0.171 ng/mL (0.00-0.029) H* 04/18/17 10:50 NT-Pro-B Natriuret Pep 3410 pg/mL (0-900) H 04/17/17 12:40 Total Protein 8.0 g/dL (6.3-8.2) 04/19/17 04:42 Albumin 2.2 g/dL (3.9-5) L 04/19/17 04:42 Albumin/Globulin Ratio 0.4 % 04/19/17 04:42 Triglycerides 148 mg/dL (2-149) 04/17/17 12:40 Cholesterol 175 mg/dL (50-199) 04/17/17 12:40 LDL Cholesterol Direct 113 mg/dL (50-130) 04/17/17 12:40 HDL Cholesterol 33 mg/dL (40-59) L 04/17/17 12:40 Cholesterol/HDL Ratio 5.30 % 04/17/17 12:40
--- NOTE | 2017-04-21 17:41 | Query- Nutrition ---
Dear Lorena Date: 04/21/17 Dope Firer/CDS:____Shaan Phone#:____[phone] Exercise your independent professional judgment when responding to query. Questions asked do not imply a particular answer is desired or expected. We greatly appreciate your clarification on this issue. Clinical Documentation States: 56 female was admitted on 04/17/17. The H&P states (Dr. Eduardo 04/17/17) states " Chief complaint: I cant breathe History of present illness: 56 YO Female with HTN, CVA, Systolic CHF, Obesity presents to ED for evaluation " The progress note ( Dr. Carrillo 04/21/17) states " Assessment and plan: Acute and chronic diastolic CHF exacerbation Acute hypoxemic respiratory failure Clinical Findings Show: Albumin: 2.2 Please select the most appropriate option 3 [] Mild Malnutrition [] Mild - Moderate Malnutrition [x] Moderate - Severe Malnutrition [] Severe Malnutrition Serum Albumin 2.8 to 3.4 g/dl or Pre-albumin 5 to 17 mg/dl1,2 Inadequate nutritional intake1,2,3,4 NPO > 5 days Weight loss: 5% in 1 month or 7.5% in 3 months or 10% in 6 months1, 3,4 BMI 16 to 18.4 or Weight <90% of ideal body weight1,2,3,4 Serum Albumin < 2.8 g/ dl1,2 Lymphocytes < 1500/ L2 Inadequate nutritional intake3, high stress e.g. major trauma, sepsis,pancreatitis, heard etc. Decubitus ulcers1,2, , skin breakdown2, easy hair pluckability2 Weight <80% standard for height2 Triceps skin fold <3 mm2 Mid-arm muscle circumference <15 cm2 Creatinine-height index <60% standard2 [ ] Cachexia [ ] Emaciated w/Malnutrition [ ] Other: [ x] Unable to determine [ ] Comment/Explanation: Present on Admission: [ x] Yes (Y) [ ] Clinically undeterminable (W) [ ] No (N) Please also document response in your Progress Notes and/or Discharge Summary and indicate if the condition was present on admission. MTDD
[2017-04-22 05:45] LABS: Basophils % (Auto) 0.4 % (0.0-1.8); Eosinophils % (Auto) 1.5 % (0.0-4.3); Hematocrit 32.9 % (30.3-42.9); Hemoglobin 10.8 gm/dl (10.1-14.3); Mean Corpuscular HGB Conc 33 % (30-34); Mean Corpuscular Hemoglobin 27 pg (28-32); Mean Corpuscular Volume 82 fl (79-97); Platelet Count 254 K/mm3 (140-440); Red Blood Count 4.04 M/mm3 (3.65-5.03); Red Cell Distribution Width 15.5 % (13.2-15.2); White Blood Count 6.5 K/mm3 (4.5-11.0)
[2017-04-22] MEDS: LASIX IV SCH ×2 (06:01→18:55)
[2017-04-22 06:03] LABS: Anion Gap 11 mmol/L; BUN/Creatinine Ratio 23; Blood Urea Nitrogen 18 mg/dL (7-17); Calcium 8.8 mg/dL (8.4-10.2); Carbon Dioxide 34 mmol/L (22-30); Chloride 96.9 mmol/L (98-107); Glucose 92 mg/dL (65-100); Potassium 4.5 mmol/L (3.6-5.0); Sodium 137 mmol/L (137-145)
[2017-04-22] MEDS: NEURONTIN PO SCH ×3 (09:00→21:14)
[2017-04-22] MEDS: TYLENOL PO PRN ×2 (09:04→21:16)
[2017-04-22] MEDS: LOVENOX SUB-Q SCH ×2 (09:04→21:14)
[2017-04-22] MEDS: FLEXERIL PO SCH (10:00)
[2017-04-22] MEDS: COREG PO SCH ×2 (10:00→21:13)
--- NOTE | 2017-04-22 10:40 | Progress Note ---
Assessment and Plan Assessment and plan: Acute and chronic diastolic CHF exacerbation - Continue IV Lasix and carvedilol - Cardiology consulted - Echo showed right atrial mass, decreased diastolic function - Per cardiology patient is on therapeutic Lovenox given a right atrial mass and asymmetric lower extremity edema at presentation, CTA negative, bilateral lower extremity doppler negative for DVT - KERMIT was done pending result - There is mild elevation in troponin level Acute hypoxemic respiratory failure -Oxygen support - Improved History of CVA with residual weakness/immobile - Supportive care - Physical therapy consult pending DVT prophylaxis - On therapeutic Lovenox Disposition - Per cardiology History Interval history: No new issues overnight. Hospitalist Physical - Constitutional Vitals: Temp Pulse Resp BP Pulse Ox 102.0 F H 97 H 18 97/67 95 04/22/17 07:41 04/22/17 07:41 04/22/17 07:41 04/22/17 07:41 04/22/17 09:59 General appearance: Present: no acute distress - EENT Eyes: Present: PERRL, EOM intact ENT: hearing intact, clear oral mucosa, dentition normal - Neck Neck: Present: supple, normal ROM - Respiratory Respiratory effort: normal Respiratory: bilateral: CTA - Cardiovascular Rhythm: regular Heart Sounds: Present: S1 & S2. Absent: gallop, rub - Extremities Extremities: no ischemia, No edema, Full ROM - Abdominal General gastrointestinal: soft, non-tender, non-distended, normal bowel sounds - Integumentary Integumentary: Present: clear, warm, dry - Neurologic Neurologic: CNII-XII intact, moves all extremities Results - Labs CBC & Chem 7: 04/22/17 05:26 04/22/17 05:26 Labs: Laboratory Last Values WBC 6.5 K/mm3 (4.5-11.0) 04/22/17 05:26 RBC 4.04 M/mm3 (3.65-5.03) 04/22/17 05:26 Hgb 10.8 gm/dl (10.1-14.3) 04/22/17 05:26 Hct 32.9 % (30.3-42.9) 04/22/17 05:26 MCV 82 fl (79-97) 04/22/17 05:26 MCH 27 pg (28-32) L 04/22/17 05:26 MCHC 33 % (30-34) 04/22/17 05:26 RDW 15.5 % (13.2-15.2) H 04/22/17 05:26 Plt Count 254 K/mm3 (140-440) 04/22/17 05:26 Lymph % (Auto) 19.9 % (13.4-35.0) 04/22/17 05:26 [place] % (Auto) 6.3 % (0.0-7.3) 04/22/17 05:26 Eos % (Auto) 1.5 % (0.0-4.3) 04/22/17 05:26 Baso % (Auto) 0.4 % (0.0-1.8) 04/22/17 05:26 Lymph # 1.3 K/mm3 (1.2-5.4) 04/22/17 05:26 [place] # 0.4 K/mm3 (0.0-0.8) 04/22/17 05:26 Eos # 0.1 K/mm3 (0.0-0.4) 04/22/17 05:26 Baso # 0.0 K/mm3 (0.0-0.1) 04/22/17 05:26 Seg Neutrophils % 71.9 % (40.0-70.0) H 04/22/17 05:26 Seg Neutrophils # 4.7 K/mm3 (1.8-7.7) 04/22/17 05:26 PT 14.9 Sec. (12.2-14.9) 04/17/17 12:40 INR 1.11 (0.87-1.13) 04/17/17 12:40 D-Dimer 1558.34 ng/mlDDU (0-234) H 04/17/17 12:40 Sodium 137 mmol/L (137-145) 04/22/17 05:26 Potassium 4.5 mmol/L (3.6-5.0) 04/22/17 05:26 Chloride 96.9 mmol/L (98-107) L 04/22/17 05:26 Carbon Dioxide 34 mmol/L (22-30) H 04/22/17 05:26 Anion Gap 11 mmol/L 04/22/17 05:26 BUN 18 mg/dL (7-17) H 04/22/17 05:26 Creatinine 0.8 mg/dL (0.7-1.2) 04/22/17 05:26 Estimated GFR > 60 ml/min 04/22/17 05:26 BUN/Creatinine Ratio 23 % 04/22/17 05:26 Glucose 92 mg/dL (65-100) 04/22/17 05:26 Calcium 8.8 mg/dL (8.4-10.2) 04/22/17 05:26 Magnesium 2.30 mg/dL (1.7-2.3) 04/19/17 04:42 Total Bilirubin 0.30 mg/dL (0.1-1.2) 04/19/17 04:42 AST 14 units/L (5-40) 04/19/17 04:42 ALT 8 units/L (7-56) 04/19/17 04:42 Alkaline Phosphatase 92 units/L (35-129) 04/19/17 04:42 Total Creatine Kinase 32 units/L (30-135) 04/18/17 10:50 CK-MB (CK-2) 2.0 ng/mL (0.0-4.0) 04/18/17 10:50 CK-MB (CK-2) Rel Index 6.2 (0-4) H 04/18/17 10:50 Troponin T 0.171 ng/mL (0.00-0.029) H* 04/18/17 10:50 NT-Pro-B Natriuret Pep 3410 pg/mL (0-900) H 04/17/17 12:40 Total Protein 8.0 g/dL (6.3-8.2) 04/19/17 04:42 Albumin 2.2 g/dL (3.9-5) L 04/19/17 04:42 Albumin/Globulin Ratio 0.4 % 04/19/17 04:42 Triglycerides 148 mg/dL (2-149) 04/17/17 12:40 Cholesterol 175 mg/dL (50-199) 04/17/17 12:40 LDL Cholesterol Direct 113 mg/dL (50-130) 04/17/17 12:40 HDL Cholesterol 33 mg/dL (40-59) L 04/17/17 12:40 Cholesterol/HDL Ratio 5.30 % 04/17/17 12:40
--- NOTE | 2017-04-22 10:56 | Progress Note ---
Assessment and Plan Shortness of breath no evidence of PE on CTA no evidence of DVT on LE duplex Hypertension Paraplegic secondary to remote CVA Troponin is borderline elevated Echo is showing normal LVEF, possible RA mass. No vegetations seen on KERMIT this admission. Conservative cardiac management. Subjective Date of service: 04/22/17 Interval history: No cardiac events reported overnight. Patient reports she is feeling better. Objective Vital Signs Temp Pulse Pulse Pulse Pulse Resp Resp 04/22/17 09:59 04/22/17 07:41 102.0 F H 97 H 18 04/22/17 04:42 102.7 F H 103 H 22 04/22/17 00:42 98.7 F 104 H 20 04/21/17 22:00 100 H 04/21/17 19:41 99.7 F H 98 H 22 04/21/17 16:03 97.9 F 18 04/21/17 13:47 97.6 F 85 85 H 04/21/17 13:45 95 H 04/21/17 13:30 95 H 04/21/17 13:20 91 H 04/21/17 13:15 90 28 H 04/21/17 13:10 89 24 04/21/17 13:05 87 27 H 04/21/17 13:00 86 25 H 04/21/17 12:50 78 Resp Resp BP BP BP BP BP 04/22/17 09:59 04/22/17 07:41 97/67 04/22/17 04:42 100/68 04/22/17 00:42 126/79 04/21/17 22:00 04/21/17 19:41 101/68 04/21/17 16:03 115/77 04/21/17 13:47 117/70 04/21/17 13:45 24 117/72 04/21/17 13:30 21 120/78 04/21/17 13:20 28 H 125/82 04/21/17 13:15 125/78 04/21/17 13:10 115/72 04/21/17 13:05 115/73 04/21/17 13:00 140/86 04/21/17 12:50 22 115/73 Pulse Ox Pulse Ox Pulse Ox Pulse Ox 04/22/17 09:59 95 04/22/17 07:41 94 04/22/17 04:42 100 04/22/17 00:42 96 04/21/17 22:00 04/21/17 19:41 98 04/21/17 16:03 04/21/17 13:47 98 04/21/17 13:45 94 04/21/17 13:30 95 04/21/17 13:20 94 04/21/17 13:15 93 04/21/17 13:10 95 04/21/17 13:05 97 04/21/17 13:00 95 04/21/17 12:50 97 - Physical Examination General: No Apparent Distress HEENT: Positive: PERRL Cardiac: Positive: Reg Rate and Rhythm Lungs: Positive: Decreased Breath Sounds - Labs and Meds CBC 04/22/17 Range/Units 05:26 WBC 6.5 (4.5-11.0) K/mm3 RBC 4.04 (3.65-5.03) M/mm3 Hgb 10.8 (10.1-14.3) gm/dl Hct 32.9 (30.3-42.9) % Plt Count 254 (140-440) K/mm3 Lymph # 1.3 (1.2-5.4) K/mm3 [place] # 0.4 (0.0-0.8) K/mm3 Eos # 0.1 (0.0-0.4) K/mm3 Baso # 0.0 (0.0-0.1) K/mm3 Comprehensive Metabolic Panel 04/22/17 Range/Units 05:26 Sodium 137 (137-145) mmol/L Potassium 4.5 (3.6-5.0) mmol/L Chloride 96.9 L (98-107) mmol/L Carbon Dioxide 34 H (22-30) mmol/L BUN 18 H (7-17) mg/dL Creatinine 0.8 (0.7-1.2) mg/dL Glucose 92 (65-100) mg/dL Calcium 8.8 (8.4-10.2) mg/dL
[2017-04-23] MEDS: LASIX IV SCH ×2 (06:00→20:33)
--- NOTE | 2017-04-23 09:23 | XRay Report ---
AP chest x-ray. History: Fever and cough. Findings: The heart and pulmonary vessels are normal. The right lung is clear. There is elevation of the left hemidiaphragm with minimal subsegmental left lower lobe atelectasis and/or a small left pleural effusion. These findings are not changed since the previous study on April 17. No new findings are seen.
[2017-04-23] MEDS: TYLENOL PO PRN ×2 (09:51→20:36)
[2017-04-23] MEDS: COREG PO SCH ×2 (09:52→21:11)
[2017-04-23] MEDS: NEURONTIN PO SCH ×3 (09:52→20:34)
[2017-04-23] MEDS: FLEXERIL PO SCH (09:52)
--- NOTE | 2017-04-23 11:00 | Progress Note ---
Assessment and Plan Assessment and plan: Acute on chronic diastolic CHF exacerbation - Continue IV Lasix and carvedilol - Cardiology following and recommends conservative management - Echo showed right atrial mass, decreased diastolic function. However, KERMIT showing no vegetations - CTA negative for PE and bilateral lower extremity doppler negative for DVT -Prophylactic dosing of Lovenox Acute hypoxemic respiratory failure -Oxygen support - Improved History of CVA with residual weakness/immobile - Supportive care - Physical therapy recommends outpatient PT ?SIRS/fever -Await blood culture and chest x-ray. Start empiric antibiotics of Levaquin. -Consider ID consultation DVT prophylaxis - On Lovenox Disposition - Per cardiology History Interval history: No new issues overnight. Hospitalist Physical - Constitutional Vitals: Temp Pulse Resp BP Pulse Ox 98.5 F 94 H 20 103/60 85 04/23/17 09:15 04/23/17 09:52 04/23/17 05:10 04/23/17 09:15 04/23/17 05:10 General appearance: Present: no acute distress - EENT Eyes: Present: PERRL, EOM intact ENT: hearing intact, clear oral mucosa, dentition normal - Neck Neck: Present: supple, normal ROM - Respiratory Respiratory effort: normal Respiratory: bilateral: diminished - Cardiovascular Rhythm: regular Heart Sounds: Present: S1 & S2. Absent: gallop, rub - Extremities Extremities: no ischemia, No edema, Full ROM - Abdominal General gastrointestinal: soft, non-tender, non-distended, normal bowel sounds - Integumentary Integumentary: Present: clear, warm, dry - Neurologic Neurologic: CNII-XII intact, moves all extremities Results - Labs CBC & Chem 7: 04/22/17 05:26 04/22/17 05:26 Labs: Laboratory Last Values WBC 6.5 K/mm3 (4.5-11.0) 04/22/17 05:26 RBC 4.04 M/mm3 (3.65-5.03) 04/22/17 05:26 Hgb 10.8 gm/dl (10.1-14.3) 04/22/17 05:26 Hct 32.9 % (30.3-42.9) 04/22/17 05:26 MCV 82 fl (79-97) 04/22/17 05:26 MCH 27 pg (28-32) L 04/22/17 05:26 MCHC 33 % (30-34) 04/22/17 05:26 RDW 15.5 % (13.2-15.2) H 04/22/17 05:26 Plt Count 254 K/mm3 (140-440) 04/22/17 05:26 Lymph % (Auto) 19.9 % (13.4-35.0) 04/22/17 05:26 [place] % (Auto) 6.3 % (0.0-7.3) 04/22/17 05:26 Eos % (Auto) 1.5 % (0.0-4.3) 04/22/17 05:26 Baso % (Auto) 0.4 % (0.0-1.8) 04/22/17 05:26 Lymph # 1.3 K/mm3 (1.2-5.4) 04/22/17 05:26 [place] # 0.4 K/mm3 (0.0-0.8) 04/22/17 05:26 Eos # 0.1 K/mm3 (0.0-0.4) 04/22/17 05:26 Baso # 0.0 K/mm3 (0.0-0.1) 04/22/17 05:26 Seg Neutrophils % 71.9 % (40.0-70.0) H 04/22/17 05:26 Seg Neutrophils # 4.7 K/mm3 (1.8-7.7) 04/22/17 05:26 PT 14.9 Sec. (12.2-14.9) 04/17/17 12:40 INR 1.11 (0.87-1.13) 04/17/17 12:40 D-Dimer 1558.34 ng/mlDDU (0-234) H 04/17/17 12:40 Sodium 137 mmol/L (137-145) 04/22/17 05:26 Potassium 4.5 mmol/L (3.6-5.0) 04/22/17 05:26 Chloride 96.9 mmol/L (98-107) L 04/22/17 05:26 Carbon Dioxide 34 mmol/L (22-30) H 04/22/17 05:26 Anion Gap 11 mmol/L 04/22/17 05:26 BUN 18 mg/dL (7-17) H 04/22/17 05:26 Creatinine 0.8 mg/dL (0.7-1.2) 04/22/17 05:26 Estimated GFR > 60 ml/min 04/22/17 05:26 BUN/Creatinine Ratio 23 % 04/22/17 05:26 Glucose 92 mg/dL (65-100) 04/22/17 05:26 Lactic Acid 1.00 mmol/L (0.7-2.0) 04/23/17 08:42 Calcium 8.8 mg/dL (8.4-10.2) 04/22/17 05:26 Magnesium 2.30 mg/dL (1.7-2.3) 04/19/17 04:42 Total Bilirubin 0.30 mg/dL (0.1-1.2) 04/19/17 04:42 AST 14 units/L (5-40) 04/19/17 04:42 ALT 8 units/L (7-56) 04/19/17 04:42 Alkaline Phosphatase 92 units/L (35-129) 04/19/17 04:42 Total Creatine Kinase 32 units/L (30-135) 04/18/17 10:50 CK-MB (CK-2) 2.0 ng/mL (0.0-4.0) 04/18/17 10:50 CK-MB (CK-2) Rel Index 6.2 (0-4) H 04/18/17 10:50 Troponin T 0.171 ng/mL (0.00-0.029) H* 04/18/17 10:50 NT-Pro-B Natriuret Pep 3410 pg/mL (0-900) H 04/17/17 12:40 Total Protein 8.0 g/dL (6.3-8.2) 04/19/17 04:42 Albumin 2.2 g/dL (3.9-5) L 04/19/17 04:42 Albumin/Globulin Ratio 0.4 % 04/19/17 04:42 Triglycerides 148 mg/dL (2-149) 04/17/17 12:40 Cholesterol 175 mg/dL (50-199) 04/17/17 12:40 LDL Cholesterol Direct 113 mg/dL (50-130) 04/17/17 12:40 HDL Cholesterol 33 mg/dL (40-59) L 04/17/17 12:40 Cholesterol/HDL Ratio 5.30 % 04/17/17 12:40
--- NOTE | 2017-04-23 11:30 | Progress Note ---
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 No vegetations seen on KERMIT this admission. Recommendations: Given the absence of chest pain, paraplegia, fever, normal LVEF we recommend conservative management for her borderline troponin elevation Discontinue BID lovenox and start asa, plavix, lipitor, and continue coreg. Subjective Date of service: 04/23/17 Principal diagnosis: Abnormal troponin Interval history: Patient denies chest pain or shortness of breath She is kept in the hospital due to fever Objective Vital Signs Temp Pulse Resp BP BP Pulse Ox 04/23/17 09:52 94 H 04/23/17 09:15 98.5 F 68 103/60 04/23/17 05:10 97.3 F L 93 H 20 109/67 85 04/22/17 23:54 100.9 F H 83 20 85/56 100 04/22/17 22:00 104 H 04/22/17 20:26 100.9 F H 98 H 20 93/66 96 04/22/17 16:54 100.9 F H 18 96/67 04/22/17 13:29 100.8 F H 59 L 88/55 04/22/17 12:37 104 H 97 - Physical Examination General: No Apparent Distress HEENT: Positive: PERRL Neck: Positive: neck supple Cardiac: Positive: Reg Rate and Rhythm Lungs: Positive: Normal Exam Abdomen: Positive: Soft Extremities: Present: normal
[2017-04-23 20:59] LABS: Bacteria,Urine 4+ /HPF (Negative); Bilirubin,Urine NEG (Negative); Blood,Urine MOD (Negative); Ketones,Urine NEG (Negative); Leukocyte Esterase,Urine LG (Negative); Mucus,Urine 1+ /HPF; Nitrite,Urine NEG (Negative); Urobilinogen,Urine < 2.0 mg/dL (<2.0)
[2017-04-23 21:01] LABS: WBC,Urine > 182.0 /HPF (0.0-6.0)
[2017-04-23] MEDS: LOVENOX SUB-Q SCH (21:11)
[2017-04-24] MEDS: LASIX IV SCH ×2 (05:40→18:15)
[2017-04-24] MEDS: NEURONTIN PO SCH ×3 (09:09→21:46)
[2017-04-24] MEDS: TYLENOL PO PRN ×2 (09:09→21:46)
--- NOTE | 2017-04-24 10:32 | Progress Note ---
Assessment and Plan Assessment and plan: Acute on chronic diastolic CHF exacerbation - Continue IV Lasix and carvedilol - Cardiology following and recommends conservative management - Echo showed right atrial mass, decreased diastolic function. However, KERMIT showing no vegetations - CTA negative for PE and bilateral lower extremity doppler negative for DVT -Prophylactic dosing of Lovenox Acute hypoxemic respiratory failure -Oxygen support - Improved History of CVA with residual weakness/immobile - Supportive care - Physical therapy recommends outpatient PT UTI -Urine culture reveals gram-negative rods. Await sensitivities and blood culture results. -Continue Levaquin for now. DVT prophylaxis - On Lovenox Disposition -Continue inpatient management. History Interval history: No new issues overnight. Patient still spiking low-grade fevers. Hospitalist Physical - Constitutional Vitals: Temp Pulse Resp BP Pulse Ox 97.9 F 95 H 12 137/71 98 04/24/17 08:23 04/24/17 08:23 04/24/17 08:23 04/24/17 08:23 04/24/17 08:23 General appearance: Present: no acute distress - EENT Eyes: Present: PERRL, EOM intact ENT: hearing intact, clear oral mucosa, dentition normal - Neck Neck: Present: supple, normal ROM - Respiratory Respiratory effort: normal Respiratory: bilateral: CTA - Cardiovascular Rhythm: regular Heart Sounds: Present: S1 & S2. Absent: gallop, rub - Extremities Extremities: no ischemia, No edema, Full ROM - Abdominal General gastrointestinal: soft, non-tender, non-distended, normal bowel sounds - Integumentary Integumentary: Present: clear, warm, dry - Neurologic Neurologic: CNII-XII intact, moves all extremities Results - Labs CBC & Chem 7: 04/22/17 05:26 04/22/17 05:26 Labs: Laboratory Last Values WBC 6.5 K/mm3 (4.5-11.0) 04/22/17 05:26 RBC 4.04 M/mm3 (3.65-5.03) 04/22/17 05:26 Hgb 10.8 gm/dl (10.1-14.3) 04/22/17 05:26 Hct 32.9 % (30.3-42.9) 04/22/17 05:26 MCV 82 fl (79-97) 04/22/17 05:26 MCH 27 pg (28-32) L 04/22/17 05:26 MCHC 33 % (30-34) 04/22/17 05:26 RDW 15.5 % (13.2-15.2) H 04/22/17 05:26 Plt Count 254 K/mm3 (140-440) 04/22/17 05:26 Lymph % (Auto) 19.9 % (13.4-35.0) 04/22/17 05:26 [place] % (Auto) 6.3 % (0.0-7.3) 04/22/17 05:26 Eos % (Auto) 1.5 % (0.0-4.3) 04/22/17 05:26 Baso % (Auto) 0.4 % (0.0-1.8) 04/22/17 05:26 Lymph # 1.3 K/mm3 (1.2-5.4) 04/22/17 05:26 [place] # 0.4 K/mm3 (0.0-0.8) 04/22/17 05:26 Eos # 0.1 K/mm3 (0.0-0.4) 04/22/17 05:26 Baso # 0.0 K/mm3 (0.0-0.1) 04/22/17 05:26 Seg Neutrophils % 71.9 % (40.0-70.0) H 04/22/17 05:26 Seg Neutrophils # 4.7 K/mm3 (1.8-7.7) 04/22/17 05:26 PT 14.9 Sec. (12.2-14.9) 04/17/17 12:40 INR 1.11 (0.87-1.13) 04/17/17 12:40 D-Dimer 1558.34 ng/mlDDU (0-234) H 04/17/17 12:40 Sodium 137 mmol/L (137-145) 04/22/17 05:26 Potassium 4.5 mmol/L (3.6-5.0) 04/22/17 05:26 Chloride 96.9 mmol/L (98-107) L 04/22/17 05:26 Carbon Dioxide 34 mmol/L (22-30) H 04/22/17 05:26 Anion Gap 11 mmol/L 04/22/17 05:26 BUN 18 mg/dL (7-17) H 04/22/17 05:26 Creatinine 0.8 mg/dL (0.7-1.2) 04/22/17 05:26 Estimated GFR > 60 ml/min 04/22/17 05:26 BUN/Creatinine Ratio 23 % 04/22/17 05:26 Glucose 92 mg/dL (65-100) 04/22/17 05:26 Lactic Acid 1.00 mmol/L (0.7-2.0) 04/23/17 08:42 Calcium 8.8 mg/dL (8.4-10.2) 04/22/17 05:26 Magnesium 2.30 mg/dL (1.7-2.3) 04/19/17 04:42 Total Bilirubin 0.30 mg/dL (0.1-1.2) 04/19/17 04:42 AST 14 units/L (5-40) 04/19/17 04:42 ALT 8 units/L (7-56) 04/19/17 04:42 Alkaline Phosphatase 92 units/L (35-129) 04/19/17 04:42 Total Creatine Kinase 32 units/L (30-135) 04/18/17 10:50 CK-MB (CK-2) 2.0 ng/mL (0.0-4.0) 04/18/17 10:50 CK-MB (CK-2) Rel Index 6.2 (0-4) H 04/18/17 10:50 Troponin T 0.171 ng/mL (0.00-0.029) H* 04/18/17 10:50 NT-Pro-B Natriuret Pep 3410 pg/mL (0-900) H 04/17/17 12:40 Total Protein 8.0 g/dL (6.3-8.2) 04/19/17 04:42 Albumin 2.2 g/dL (3.9-5) L 04/19/17 04:42 Albumin/Globulin Ratio 0.4 % 04/19/17 04:42 Triglycerides 148 mg/dL (2-149) 04/17/17 12:40 Cholesterol 175 mg/dL (50-199) 04/17/17 12:40 LDL Cholesterol Direct 113 mg/dL (50-130) 04/17/17 12:40 HDL Cholesterol 33 mg/dL (40-59) L 04/17/17 12:40 Cholesterol/HDL Ratio 5.30 % 04/17/17 12:40 Urine Color Mimi (Yellow) 04/23/17 20:46 Urine Turbidity Clear (Clear) 04/23/17 20:46 Urine pH 8.0 (5.0-7.0) H 04/23/17 20:46 Ur Specific [place] 1.019 (1.003-1.030) 04/23/17 20:46 Urine Protein 100 mg/dl mg/dL (Negative) 04/23/17 20:46 Urine Glucose (UA) Neg mg/dL (Negative) 04/23/17 20:46 Urine Ketones Neg mg/dL (Negative) 04/23/17 20:46 Urine Blood Mod (Negative) 04/23/17 20:46 Urine Nitrite Neg (Negative) 04/23/17 20:46 Urine Bilirubin Neg (Negative) 04/23/17 20:46 Urine Urobilinogen < 2.0 mg/dL (<2.0) 04/23/17 20:46 Ur Leukocyte Esterase Lg (Negative) 04/23/17 20:46 Urine WBC (Auto) > 182.0 /HPF (0.0-6.0) H 04/23/17 20:46 Urine RBC (Auto) 25.0 /HPF (0.0-6.0) 04/23/17 20:46 U Epithel Cells (Auto) 6.0 /HPF (0-13.0) 04/23/17 20:46 Urine Bacteria (Auto) 4+ /HPF (Negative) 04/23/17 20:46 Urine Mucus 1+ /HPF 04/23/17 20:46
[2017-04-24] MEDS: HALFPRIN EC PO SCH (10:44)
[2017-04-24] MEDS: COREG PO SCH ×2 (10:45→21:48)
[2017-04-24] MEDS: PLAVIX PO SCH (10:45)
[2017-04-24] MEDS: FLEXERIL PO SCH (10:46)
[2017-04-24] MEDS: LEVAQUIN 750MG/150ML 750 MG/150 ML BAG IV SCH (12:00)
[2017-04-24] MEDS: PERCOCET 5/325 PO PRN (18:15)
[2017-04-24] MEDS: LOVENOX SUB-Q SCH (21:45)
[2017-04-25] MEDS: LASIX IV SCH ×2 (05:45→17:28)
--- NOTE | 2017-04-25 09:07 | Progress Note ---
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 No vegetations seen on KERMIT this admission. Recommendations: Given the absence of chest pain, paraplegia, fever, normal LVEF we recommend conservative management for her borderline troponin elevation No further cardiac intervention Subjective Date of service: 04/25/17 Principal diagnosis: Abnormal troponin Interval history: No cardiac events overnight Objective Vital Signs Temp Pulse Pulse Resp BP Pulse Ox 04/25/17 04:25 99.5 F 83 18 94/65 83 L 04/25/17 00:11 100.6 F H 100 H 18 89/61 97 04/24/17 20:39 96 04/24/17 20:26 98 H 18 04/24/17 20:23 98 H 04/24/17 20:13 100.2 F H 99 H 18 96/60 96 04/24/17 16:48 98.5 F 18 04/24/17 16:47 98.5 F 96 H 18 97/66 98 04/24/17 12:39 99.0 F 98 H 16 85/60 97 04/24/17 10:45 95 H 137/71 04/24/17 10:00 98 - Physical Examination General: No Apparent Distress HEENT: Positive: PERRL Neck: Positive: neck supple Cardiac: Positive: Reg Rate and Rhythm Lungs: Positive: Normal Exam Abdomen: Positive: Soft Extremities: Present: normal
[2017-04-25] MEDS: FLEXERIL PO SCH (09:38)
[2017-04-25] MEDS: PLAVIX PO SCH (09:38)
[2017-04-25] MEDS: NEURONTIN PO SCH ×3 (09:38→21:50)
[2017-04-25] MEDS: HALFPRIN EC PO SCH (09:38)
[2017-04-25] MEDS: LEVAQUIN 750MG/150ML 750 MG/150 ML BAG IV SCH (09:39)
[2017-04-25] MEDS: COREG PO SCH ×2 (09:44→21:49)
[2017-04-25] MEDS: PERCOCET 5/325 PO PRN (09:44)
--- NOTE | 2017-04-25 11:39 | Progress Note ---
Assessment and Plan Assessment and plan: Acute on chronic diastolic CHF exacerbation - Continue IV Lasix and carvedilol - Cardiology following and recommends conservative management - Echo showed right atrial mass, decreased diastolic function. However, KERMIT showing no vegetations - CTA negative for PE and bilateral lower extremity doppler negative for DVT -Prophylactic dosing of Lovenox Acute hypoxemic respiratory failure -Oxygen support - Improved History of CVA with residual weakness/immobile - Supportive care - Physical therapy recommends outpatient PT UTI -Urine culture reveals Klebsiella and Proteus sensitive to Levaquin -Persistent fevers. ID consultation. -Continue Levaquin for now. DVT prophylaxis - On Lovenox Disposition -Continue inpatient management. History Interval history: No new issues overnight. Patient still spiking low-grade fevers. Hospitalist Physical - Constitutional Vitals: Temp Pulse Resp BP Pulse Ox 99.5 F 83 18 110/67 83 L 04/25/17 04:25 04/25/17 04:25 04/25/17 04:25 04/25/17 09:44 04/25/17 04:25 General appearance: Present: no acute distress - EENT Eyes: Present: PERRL, EOM intact ENT: hearing intact, clear oral mucosa, dentition normal - Neck Neck: Present: supple, normal ROM - Respiratory Respiratory effort: normal Respiratory: bilateral: CTA - Cardiovascular Rhythm: regular Heart Sounds: Present: S1 & S2. Absent: gallop, rub - Extremities Extremities: no ischemia, No edema, Full ROM - Abdominal General gastrointestinal: soft, non-tender, non-distended, normal bowel sounds - Integumentary Integumentary: Present: clear, warm, dry - Neurologic Neurologic: CNII-XII intact, moves all extremities Results - Labs CBC & Chem 7: 04/22/17 05:26 04/22/17 05:26 Labs: Laboratory Last Values WBC 6.5 K/mm3 (4.5-11.0) 04/22/17 05:26 RBC 4.04 M/mm3 (3.65-5.03) 04/22/17 05:26 Hgb 10.8 gm/dl (10.1-14.3) 04/22/17 05:26 Hct 32.9 % (30.3-42.9) 04/22/17 05:26 MCV 82 fl (79-97) 04/22/17 05:26 MCH 27 pg (28-32) L 04/22/17 05:26 MCHC 33 % (30-34) 04/22/17 05:26 RDW 15.5 % (13.2-15.2) H 04/22/17 05:26 Plt Count 254 K/mm3 (140-440) 04/22/17 05:26 Lymph % (Auto) 19.9 % (13.4-35.0) 04/22/17 05:26 [place] % (Auto) 6.3 % (0.0-7.3) 04/22/17 05:26 Eos % (Auto) 1.5 % (0.0-4.3) 04/22/17 05:26 Baso % (Auto) 0.4 % (0.0-1.8) 04/22/17 05:26 Lymph # 1.3 K/mm3 (1.2-5.4) 04/22/17 05:26 [place] # 0.4 K/mm3 (0.0-0.8) 04/22/17 05:26 Eos # 0.1 K/mm3 (0.0-0.4) 04/22/17 05:26 Baso # 0.0 K/mm3 (0.0-0.1) 04/22/17 05:26 Seg Neutrophils % 71.9 % (40.0-70.0) H 04/22/17 05:26 Seg Neutrophils # 4.7 K/mm3 (1.8-7.7) 04/22/17 05:26 PT 14.9 Sec. (12.2-14.9) 04/17/17 12:40 INR 1.11 (0.87-1.13) 04/17/17 12:40 D-Dimer 1558.34 ng/mlDDU (0-234) H 04/17/17 12:40 Sodium 137 mmol/L (137-145) 04/22/17 05:26 Potassium 4.5 mmol/L (3.6-5.0) 04/22/17 05:26 Chloride 96.9 mmol/L (98-107) L 04/22/17 05:26 Carbon Dioxide 34 mmol/L (22-30) H 04/22/17 05:26 Anion Gap 11 mmol/L 04/22/17 05:26 BUN 18 mg/dL (7-17) H 04/22/17 05:26 Creatinine 0.8 mg/dL (0.7-1.2) 04/22/17 05:26 Estimated GFR > 60 ml/min 04/22/17 05:26 BUN/Creatinine Ratio 23 % 04/22/17 05:26 Glucose 92 mg/dL (65-100) 04/22/17 05:26 Lactic Acid 1.00 mmol/L (0.7-2.0) 04/23/17 08:42 Calcium 8.8 mg/dL (8.4-10.2) 04/22/17 05:26 Magnesium 2.30 mg/dL (1.7-2.3) 04/19/17 04:42 Total Bilirubin 0.30 mg/dL (0.1-1.2) 04/19/17 04:42 AST 14 units/L (5-40) 04/19/17 04:42 ALT 8 units/L (7-56) 04/19/17 04:42 Alkaline Phosphatase 92 units/L (35-129) 04/19/17 04:42 Total Creatine Kinase 32 units/L (30-135) 04/18/17 10:50 CK-MB (CK-2) 2.0 ng/mL (0.0-4.0) 04/18/17 10:50 CK-MB (CK-2) Rel Index 6.2 (0-4) H 04/18/17 10:50 Troponin T 0.171 ng/mL (0.00-0.029) H* 04/18/17 10:50 NT-Pro-B Natriuret Pep 3410 pg/mL (0-900) H 04/17/17 12:40 Total Protein 8.0 g/dL (6.3-8.2) 04/19/17 04:42 Albumin 2.2 g/dL (3.9-5) L 04/19/17 04:42 Albumin/Globulin Ratio 0.4 % 04/19/17 04:42 Triglycerides 148 mg/dL (2-149) 04/17/17 12:40 Cholesterol 175 mg/dL (50-199) 04/17/17 12:40 LDL Cholesterol Direct 113 mg/dL (50-130) 04/17/17 12:40 HDL Cholesterol 33 mg/dL (40-59) L 04/17/17 12:40 Cholesterol/HDL Ratio 5.30 % 04/17/17 12:40 Urine Color Mimi (Yellow) 04/23/17 20:46 Urine Turbidity Clear (Clear) 04/23/17 20:46 Urine pH 8.0 (5.0-7.0) H 04/23/17 20:46 Ur Specific [place] 1.019 (1.003-1.030) 04/23/17 20:46 Urine Protein 100 mg/dl mg/dL (Negative) 04/23/17 20:46 Urine Glucose (UA) Neg mg/dL (Negative) 04/23/17 20:46 Urine Ketones Neg mg/dL (Negative) 04/23/17 20:46 Urine Blood Mod (Negative) 04/23/17 20:46 Urine Nitrite Neg (Negative) 04/23/17 20:46 Urine Bilirubin Neg (Negative) 04/23/17 20:46 Urine Urobilinogen < 2.0 mg/dL (<2.0) 04/23/17 20:46 Ur Leukocyte Esterase Lg (Negative) 04/23/17 20:46 Urine WBC (Auto) > 182.0 /HPF (0.0-6.0) H 04/23/17 20:46 Urine RBC (Auto) 25.0 /HPF (0.0-6.0) 04/23/17 20:46 U Epithel Cells (Auto) 6.0 /HPF (0-13.0) 04/23/17 20:46 Urine Bacteria (Auto) 4+ /HPF (Negative) 04/23/17 20:46 Urine Mucus 1+ /HPF 04/23/17 20:46
--- NOTE | 2017-04-25 14:34 | Consultation ---
History of Present Illness - Reason for Consult Consult date: 04/25/17 SIRS Requesting physician: LYSSA JULIO - History of Present Illness The 6 years old female with history of HTN, CVA, Systolic CHF, Obesity; admitted on 04/17/2017 due to shortness of breath for 3 days associated with orthopnea, PND. Patient denies any fever, chills, nausea, vomiting, diarrhea. Patient reports increase in the mouth the lower extremities. Patient has chronic sacral decubiti. In the emergency room, initial temperature was 98.4 heart rate 96, blood pressure 104/74. Initial white count was 9.9. Creatinine 0.8. EMS reports pt SOB sats 88% on room air; pt on non re-breather sats 100%. CXR showed pulmonary edema. CTA showed no PE, ana pulmnary edema. Patient was admitted an treated medically for CHF exacerbation. A samuel was placed in the ED. Unfortunately, by April 22 patient started spiking high fever 102 associated with tachycardia. Urinalysis was sent and was abnormal showing large leukocyte esterase and more than 182 white blood cells. Current Antimicrobials: Levaquin 04/24 Previous Antimicrobials: Microbiology: Blood cultures: 04/22 ngtd Urine cultures: 04/22 Klebsiella / Proteus Past History Past Medical History: heart failure, hypertension, stroke Past Surgical History: total hip replacement Social history: single. denies: smoking, alcohol abuse, prescription drug abuse Family history: hypertension Medications and Allergies Allergies Allergy/AdvReac Type Severity Reaction Status Date / Time No Known Allergies Allergy Unverified 04/17/17 11:46 Home Medications Medication Instructions Recorded Confirmed Last Taken Type Carvedilol [Coreg] 12.5 mg PO BIDWM 04/17/17 04/17/17 Unknown History Cyclobenzaprine [Flexeril 10 MG 10 mg PO DAILY 04/17/17 04/17/17 Unknown History TAB] Gabapentin [Neurontin] 300 mg PO TID 04/17/17 04/17/17 Unknown History Ibuprofen [Motrin 800 MG tab] 800 mg PO DAILY 04/17/17 04/17/17 Unknown History amLODIPine [Norvasc] 10 mg PO DAILY 04/17/17 04/17/17 Unknown History Active Meds: Active Medications Acetaminophen (Tylenol) 650 mg PO Q4H PRN PRN Reason: Pain MILD(1-3)/Fever >100.5/BROWN Last Admin: 04/24/17 21:46 Dose: 650 mg Albuterol (Proventil) 2.5 mg IH Q4HRT PRN PRN Reason: Shortness Of Breath Last Admin: 04/17/17 14:55 Dose: 2.5 mg Aspirin (Halfprin Ec) 81 mg PO QDAY [facility] Last Admin: 04/25/17 09:38 Dose: 81 mg Atorvastatin Calcium (Lipitor) 20 mg PO QHS [facility] Last Admin: 04/24/17 21:45 Dose: 20 mg Carvedilol (Coreg) 12.5 mg PO BID [facility] Last Admin: 04/25/17 09:44 Dose: 12.5 mg Clopidogrel Bisulfate (Plavix) 75 mg PO QDAY [facility] Last Admin: 04/25/17 09:38 Dose: 75 mg Cyclobenzaprine HCl (Flexeril) 10 mg PO DAILY [facility] Last Admin: 04/25/17 09:38 Dose: Not Given Enoxaparin Sodium (Lovenox) 40 mg SUB-Q QDAY@2200 [facility] Last Admin: 04/24/17 21:45 Dose: 40 mg Furosemide (Lasix) 20 mg IV BID@0600,1800 [facility] Last Admin: 04/25/17 05:45 Dose: 20 mg Gabapentin (Neurontin) 300 mg PO TID [facility] Last Admin: 04/25/17 09:38 Dose: 300 mg Levofloxacin/Dextrose (Levaquin 750mg/150ml) 750 mg in 150 mls @ 100 mls/hr IV Q24HR [facility] PRN Reason: Protocol Last Admin: 04/25/17 09:39 Dose: 100 mls/hr Ondansetron HCl (Zofran) 4 mg IV Q8H PRN PRN Reason: N/V unrelieved by Reglan Last Admin: 04/17/17 15:24 Dose: 4 mg Oxycodone/Acetaminophen (Percocet 5/325) 1 tab PO Q4H PRN PRN Reason: Pain, Moderate (4-6) Last Admin: 04/25/17 09:44 Dose: 1 tab Review of Systems ROS unobtainable: due to mental status All systems: negative (as per HPI) Physical Examination - Physical Exam Narrative exam: General appearance: Alert in NAD, conversant Eyes: anicteric sclerae, moist conjunctivae; no lid-lag; PERRLA HENT: Atraumatic; oropharynx clear Neck: Trachea midline; supple, no thyromegaly or lymphadenopathy Lungs: CTA CV: RRR Abdomen: Soft, non-tender; no masses or hepatosplenomegaly Extremities: contracted Skin: stage II sacral and left ischeat no purulence Psych: Appropriate affect, alert and oriented to person, place and time. Neuro: alert and oriented x 3. Moving all extermities Lines: No CVL / PICC - Constitutional Vitals: Vital Signs Temp Pulse Resp BP Pulse Ox 99.5 F 83 18 110/67 83 L 04/25/17 04:25 04/25/17 04:25 04/25/17 04:25 04/25/17 09:44 04/25/17 04:25 Temperature -Last 24 Hours Temperature 99.5 F Temperature 100.6 F Temperature 100.2 F Temperature 98.5 F Temperature 98.5 F Results - Labs CBC & Chem 7: 04/22/17 05:26 04/22/17 05:26 Assessment and Plan Assessment: 1) Sepsis: NOT Present on admission, manifested by fever, tachycardia, hypotension, leukocytosis. Etiology most likely CA-UTI. 2) CA-UTI: Secondary to Escherichia coli and Klebsiella 3) Acute on chronic diastolic CHF exacerbation-per cards 4) Sacral and ischeal decubiti - not infected Plan: -remove samuel cath soon-discussed with nurse [employer] assistant manager -continue levaquin for now -monitor fever / leukocytosis once samuel is out Thank you Dr Julio for your consultation, will follow up with you. Eugenia Bateman MD Infectious Diseases Specialist [facility] M [phone] O [phone]
[2017-04-25] MEDS: LOVENOX SUB-Q SCH (21:46)
[2017-04-25] MEDS: TYLENOL PO PRN (21:51)
[2017-04-26 05:44] LABS: Basophils % (Auto) 0.3 % (0.0-1.8); Eosinophils % (Auto) 4.3 % (0.0-4.3); Hematocrit 31.7 % (30.3-42.9); Hemoglobin 10.1 gm/dl (10.1-14.3); Mean Corpuscular HGB Conc 32 % (30-34); Mean Corpuscular Hemoglobin 26 pg (28-32); Mean Corpuscular Volume 82 fl (79-97); Platelet Count 277 K/mm3 (140-440); Red Blood Count 3.85 M/mm3 (3.65-5.03); Red Cell Distribution Width 15.1 % (13.2-15.2); White Blood Count 7.8 K/mm3 (4.5-11.0)
[2017-04-26 06:06] LABS: Anion Gap 16 mmol/L; BUN/Creatinine Ratio 26; Blood Urea Nitrogen 26 mg/dL (7-17); Calcium 8.9 mg/dL (8.4-10.2); Carbon Dioxide 34 mmol/L (22-30); Chloride 95.9 mmol/L (98-107); Glucose 81 mg/dL (65-100); Potassium 4.4 mmol/L (3.6-5.0); Sodium 141 mmol/L (137-145)
[2017-04-26] MEDS: LASIX IV SCH (06:59)
[2017-04-26 09:14] VITALS: BP 103/62
--- NOTE | 2017-04-26 09:21 | Discharge Summary ---
Providers - Providers Date of Admission: 04/17/17 14:14 Date of discharge: 04/26/17 Attending physician: LYSSA DIXON 04/17/17 14:17 Consult to Physician [CONS] Routine Consulting Provider: LORENA ROBERTS Reason For Exam: chf Place consult to:: Dr. Shipley Notified:: yes Phone number called:: in person Was contact made?: Yes 04/17/17 15:27 Consult to Wound/ET Nurse [CONS] Routine Reason For Exam: wound eval 04/19/17 06:49 Physical Therapy Evaluation and Treat [CONS] Routine Comment: Reason For Exam: Immobility 04/25/17 09:35 Consult to Physician [CONS] Routine Consulting Provider: ERIKA GARRETT Reason For Exam: persistent fevers Place consult to:: Dr. Ruiz Notified:: Courtney JONES Phone number called:: Was contact made?: Yes If yes, spoke with:: [employer] Time called:: 10:19 Primary care physician: MANAGER OF TRAINING AND DEVELOPMENT Hospitalization Reason for admission: SOB Condition: Serious Hospital course: This is a 56yr old woman with significant past medical history of hypertension, CHF(nonischemic cardiomyopathy by cardiac cath in 2009 at [facility]) and is bedridden from prior CVA who presented to this hospital with complaints of shortness of breath. There was no chest pain or dizziness. She denied palpitations, vomiting, fever and chills. Patient reported chronic unilateral lower extremity edema. The patient was admitted with diagnosis of heart failure and a Cardiology consultation was requested for evaluation of CHF. The patient had a troponin that was borderline elevated. CT of the chest suggestive of COPD and pulmonary edema, but no PE. Echocardiogram revealed normal LVEF with a possible right atrial mass. Given the history of paraplegia , asymmetric lower extremity edema and possible RA mass on echocardiogram, patient was empirically anticoagulated with Lovenox and lower extremity Doppler ultrasound and KERMIT were obtained. No evidence of DVT on LE duplex. No vegetations were seen on KERMIT. Cardiology recommended conservative management. However, patient was treated with appropriate medications for the heart failure. Patient received Coreg, Lasix and Lipitor. Patient did not receive DERIAN inhibitor secondary to hypotension. Unfortunately, by April 22 patient started spiking high fever 102 associated with tachycardia. Urinalysis was sent and was abnormal showing large leukocyte esterase and more than 182 white blood cells. Patient was treated with Levaquin and urine culture revealed Escherichia coli and Klebsiella sensitive to antibiotics. ID was consulted for persistent fevers. ID felt that the patient had sepsis NOT present on admission , manifested by fever, tachycardia, hypotension, leukocytosis. Etiology most likely CA-UTI. The Garibay was discontinued and patient was continued on Levaquin. Patient defervesced and stabilized. Therefore, patient is felt to have received maximal hospital benefit. Patient will be discharged home. Dedicated discharge time 38 minutes. Disposition: DC-01 TO HOME OR SELFCARE Time spent for discharge: 38 - Discharge Diagnoses (1) Acute diastolic (congestive) heart failure Status: Acute (2) Sepsis Status: Acute Qualifiers: Sepsis type: S (3) UTI (urinary tract infection) Status: Acute Qualifiers: Urinary tract infection type: U Hematuria presence: H Indwelling urinary catheter type: I Encounter type: E (4) Acute hypoxemic respiratory failure Status: Acute (5) HTN (hypertension) Status: Acute Qualifiers: Hypertension type: H Core Measure Documentation - Palliative Care Palliative Care/ Comfort Measures: Not Applicable - Core Measures Any of the following diagnoses?: heart failure - Heart Failure Discharge Requirements DERIAN/ARB for LVSD if EF <40%: No Reason for no DERIAN/ARB: Hypotension Beta inder at discharge: Yes Exam - Constitutional Vitals: Temp Pulse Resp BP Pulse Ox 98.4 F 81 17 95/63 99 04/26/17 06:25 04/26/17 06:25 04/26/17 06:25 04/26/17 06:25 04/26/17 06:25 General appearance: Present: no acute distress, well-nourished - EENT Eyes: Present: PERRL ENT: hearing intact, clear oral mucosa - Neck Neck: Present: supple, normal ROM - Respiratory Respiratory effort: normal Respiratory: bilateral: CTA - Cardiovascular Heart Sounds: Present: S1 & S2. Absent: rub, click - Extremities Extremities: pulses symmetrical, No edema Peripheral Pulses: within normal limits - Abdominal General gastrointestinal: Present: soft, non-tender, non-distended, normal bowel sounds Female genitourinary: Present: normal - Integumentary Integumentary: Present: clear, warm, dry - Musculoskeletal Musculoskeletal: gait normal, strength equal bilaterally - Psychiatric Psychiatric: appropriate mood/affect, intact judgment & insight - Neurologic Neurologic: CNII-XII intact, moves all extremities Plan Activity: no restrictions Weight Bearing Status: Full Weight Bearing Diet: low fat, low cholesterol, low salt Follow up with: PRIMARY CARE, [Primary Care Provider] - 3-5 Days JENNI SHIPLEY MD [Staff Physician] - 7 Days ERIKA GARRETT MD [Staff Physician] - 7 Days Forms: Accompanied Note Prescriptions: amLODIPine [Norvasc] 10 mg PO DAILY #30 tablet AtorvaSTATin [Lipitor] 20 mg PO QHS #30 tablet Carvedilol [Coreg] 12.5 mg PO BIDWM #60 tablet Clopidogrel [Plavix] 75 mg PO QDAY #30 tablet Cyclobenzaprine [Flexeril 10 MG TAB] 10 mg PO DAILY #30 tablet Gabapentin [Neurontin] 300 mg PO TID #90 capsule
--- NOTE | 2017-04-26 10:41 | Progress Note ---
Assessment and Plan 1. Essential hypertension 2. Paraplegia Plan. Cardiac weiss patient is stable echo shows normal left ventricular size and function. No further cardiac workup indicated. Subjective Date of service: 04/26/17 Principal diagnosis: Abnormal troponin Interval history: No cardiac symptoms. Objective Vital Signs Temp Pulse Pulse Resp BP BP Pulse Ox 04/26/17 09:20 18 04/26/17 09:13 97.3 F L 68 16 103/62 82 L 04/26/17 06:25 98.4 F 81 17 95/63 99 04/26/17 02:31 99.0 F 83 20 96/43 95 04/25/17 22:13 98.7 F 92 H 17 96/59 99 04/25/17 22:00 90 04/25/17 21:20 98 04/25/17 20:58 90 18 04/25/17 12:14 93 H 95/59 95 04/25/17 12:11 99.2 F 91 H 18 82/57 95 - Physical Examination General: No Apparent Distress HEENT: Positive: PERRL Neck: Positive: neck supple. Negative: JVD/HJR Cardiac: Positive: Regular Rate, S1/S2. Negative: S3, S4 Lungs: Positive: clear to auscultation (Paraplegia) Abdomen: Positive: Unremarkable, Soft Extremities: Absent: edema - Labs and Meds CBC 04/26/17 Range/Units 04:28 WBC 7.8 (4.5-11.0) K/mm3 RBC 3.85 (3.65-5.03) M/mm3 Hgb 10.1 (10.1-14.3) gm/dl Hct 31.7 (30.3-42.9) % Plt Count 277 (140-440) K/mm3 Lymph # 3.7 (1.2-5.4) K/mm3 [place] # 0.9 H (0.0-0.8) K/mm3 Eos # 0.3 (0.0-0.4) K/mm3 Baso # 0.0 (0.0-0.1) K/mm3 Comprehensive Metabolic Panel 04/26/17 Range/Units 04:28 Sodium 141 (137-145) mmol/L Potassium 4.4 (3.6-5.0) mmol/L Chloride 95.9 L (98-107) mmol/L Carbon Dioxide 34 H (22-30) mmol/L BUN 26 H (7-17) mg/dL Creatinine 1.0 (0.7-1.2) mg/dL Glucose 81 (65-100) mg/dL Calcium 8.9 (8.4-10.2) mg/dL
[2017-04-26] MEDS: FLEXERIL PO SCH (10:43)
[2017-04-26] MEDS: NEURONTIN PO SCH ×2 (10:43→14:55)
[2017-04-26] MEDS: PLAVIX PO SCH (10:43)
[2017-04-26] MEDS: COREG PO SCH (10:43)
[2017-04-26] MEDS: HALFPRIN EC PO SCH (10:43)
[2017-04-26] MEDS: LEVAQUIN 750MG/150ML 750 MG/150 ML BAG IV SCH (10:44)
[2017-04-26] MEDS: PERCOCET 5/325 PO PRN (14:55)
== END 2017-04-26 17:18 | disposition home or self-care (01) | DRG 291 ==
LOC: ED 11:27 → 4A 14:14
PROVIDERS: ADMIT Internal Medicine; ATTEND Hospitalist
PROC: 3E0234Z Introduction of Serum, Toxoid and Vaccine into Muscle, Percutaneous Approach (ICD-10-PCS; principal; 2017-04-18)
DX: I11.0 Hypertensive heart disease with heart failure (principal); J96.01 Acute respiratory failure with hypoxia; E43 Unspecified severe protein-calorie malnutrition; A41.9 Sepsis, unspecified organism; G82.20 Paraplegia, unspecified; N39.0 Urinary tract infection, site not specified; T83.511A Infection and inflammatory reaction due to indwelling urethral catheter, initial encounter; I50.43 Acute on chronic combined systolic (congestive) and diastolic (congestive) heart failure; I42.9 Cardiomyopathy, unspecified; Z96.642 Presence of left artificial hip joint; E66.9 Obesity, unspecified; R91.1 Solitary pulmonary nodule; L89.899 Pressure ulcer of other site, unspecified stage; B96.20 Unspecified Escherichia coli [E. coli] as the cause of diseases classified elsewhere; L89.159 Pressure ulcer of sacral region, unspecified stage; Z68.31 Body mass index [BMI] 31.0-31.9, adult; Z79.899 Other long term (current) drug therapy; Z86.73 Personal history of transient ischemic attack (TIA), and cerebral infarction without residual deficits; Z82.49 Family history of ischemic heart disease and other diseases of the circulatory system; Z23 Encounter for immunization
CPT/HCPCS: 36415; 71010; 71275; 80048; 80053; 80061; 81001; 82140; 82550; 82553; 83735; 83880; 84484; 85025; 85379; 85610; 85730; 87040; 87076; 87086; 87186; 90686; 90732; 93005; 93010; 93306; 93312; 93320; 93325; 93970; 94640; 94760; 96374; 96375; A9270-GY; G8978-GP; G8979-GP; G8980-GP; J1650; J1940; J1956; J2250; J2405; J3010; Q9967